=== PATIENT | female | born 2000 | race Caucasian/White ===

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

== ENCOUNTER 2019-01-25 14:51 | Emergency (ER) | payer OTHER ==
[2019-01-25] MEDS ORDERED: DIPH,PERTUS(ACELL)TETVAC-LF 0.5 ML VIAL IM ONE (15:00)
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
[2019-01-25 15:56] LABS: Anisocytosis Slight; Basophils # (A) 0.1 k/uL (0-0.2); Basophils % (A) 1 %; Eosinophils % (A) 0 %; HCT 40.5 % (34.0-46.0); HGB 12.5 gm/dL (11.4-16.0); Lymphocytes # (A) 1.6 k/uL (1.0-4.8); Lymphocytes % (A) 16 %; MCH 22.3 pg (25.0-35.0); MCHC 30.9 g/dL (31.0-37.0); MCV 72.2 fL (80.0-100.0); Microcytosis Moderate; Monocytes # (A) 0.4 k/uL (0-1.0); Monocytes % (A) 4 %; Neutrophils % (A) 78 %; Platelet Count 312 k/uL (150-450); RBC 5.61 m/uL (3.80-5.40); RDW 16.4 % (11.5-15.5); WBC 10.3 k/uL (4.0-11.0)
[2019-01-25 16:05] LABS: ALT 25 U/L (9-52); AST 29 U/L (14-36); African American GFR (CKD) >90 (>60 ml/min/1.73 sqM); Albumin 4.6 g/dL (3.5-5.0); Alcohol <10 mg/dL; Alkaline Phosphatase 145 U/L (38-126); Anion Gap 10 mmol/L; Blood Urea Nitrogen 14 mg/dL (7-17); Calcium 10.1 mg/dL (8.4-10.2); Carbon Dioxide 25 mmol/L (22-30); Chloride 107 mmol/L (98-107); Glucose 88 mg/dL (74-99); Potassium 4.3 mmol/L (3.5-5.1); Sodium 142 mmol/L (137-145); Total Bilirubin 0.3 mg/dL (0.2-1.3); Total Protein 7.8 g/dL (6.3-8.2)
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
[2019-01-25 16:58] LABS: Appearance,Urine Clear (Clear); Bilirubin,Urine Negative (Negative); Blood,Urine Negative (Negative); Color,Urine Light Yellow; Glucose,Urine (UA) Negative (Negative); Ketones,Urine Negative (Negative); Leukocyte Esterase,Urine Negative (Negative); Nitrite,Urine Negative (Negative); Protein,Urine Negative (Negative); Specific Gravity,Urine 1.018 (1.001-1.035); Urobilinogen,Urine <2.0 mg/dL (<2.0)
[2019-01-25 17:07] LABS: Amphetamine Screen,Urine Not Detected (NotDetected); Barbiturate Screen,Urine Not Detected (NotDetected); Benzodiazepines Screen,Urine Not Detected (NotDetected); Cocaine Screen,Urine Not Detected (NotDetected); Methadone Screen, Urine Not Detected (NotDetected); Opiate Screen,Urine Not Detected (NotDetected); Oxycodone Screen, Urine Not Detected (NotDetected); Phencyclidine Screen,Urine Not Detected (NotDetected); Tricyclic Antidepressant,Urine Not Detected (NotDetected); Urn Cannabinoid Scrn Not Detected (NotDetected)
[2019-01-25] MEDS ORDERED: KETOROLAC 60 MG/2 ML VIAL IVP STA (17:19)
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
[2019-01-25 18:27] VITALS: BP 153/90; PULSE 90; RESP 18; TEMP 98.3
== END 2019-01-25 18:32 | disposition home or self-care (01) ==
LOC: EC 14:51
DX: S20.219A Contusion of unspecified front wall of thorax, initial encounter (principal); S80.02XA Contusion of left knee, initial encounter; F17.200 Nicotine dependence, unspecified, uncomplicated; Z23 Encounter for immunization; V43.52XA Car driver injured in collision with other type car in traffic accident, initial encounter; Y93.9 Activity, unspecified; Y92.410 Unspecified street and highway as the place of occurrence of the external cause
CPT/HCPCS: 90471; 96374; 99285; 36415; 93005; 86900; 86901; 80053; 84484; 85025; 86850; 81003; 80306; 80320; 72170; 73564; 72125; 70450; 71260; 74177; 90715; J1885; Q9967

== ENCOUNTER → 2019-12-11 | Outpatient (CLI) | payer BC, OTHER | END | disposition home or self-care (01) | LOC: LABWHC1 14:20 | PROVIDERS: ATTEND Nurse Practitioner Family | DX: Z03.89 Encounter for observation for other suspected diseases and conditions ruled out (principal) | CPT/HCPCS: U0003; C9803 ==

== ENCOUNTER 2020-10-18 19:32 | Inpatient (IN) | payer BC ==
[2020-10-18] MEDS ORDERED: METOCLOPRAMIDE 5 MG/ML 2 ML VIAL IVP STA (20:01)
--- NOTE | 2020-10-18 20:01 | ED ---
General Adult HPI - General Source: patient, EMS Mode of arrival: EMS <Morales Gallo D - Last Filed: 10/18/20 23:28> <TaniyaRico Anabel - Last Filed: 10/19/20 01:44> - General Chief complaint: Chest Pain Stated complaint: Chest Pain Time Seen by Provider: 10/18/20 19:36 - History of Present Illness Initial comments: Dictation was produced using [employer] dictation software. please excuse any grammatical, word or spelling errors. Chief Complaint: 19-year-old female presents with chest pain History of Present Illness: Patient 19-year-old female presents to the emergency department today for chest pain. Patient states it started about 1 hour prior to arrival. She states as a sharp pain located to the left lower anterior chest. This worse with deep inspiration. Patient states the pain radiates to her shoulder. She denies any shortness of breath except when she takes a deep breath. She denies any medical problems. No history of blood clots. No complaints of leg swelling or calf pain. No fevers or recent cough. She does complain of associated nausea The ROS documented in this emergency department record has been reviewed and confirmed by me. Those systems with pertinent positive or negative responses have been documented in the HPI. All other systems are other negative and/or noncontributory. PHYSICAL EXAM: General Impression: Alert and oriented x3, nauseated HEENT: Normocephalic atraumatic, extra-ocular movements intact, pupils equal and reactive to light bilaterally, mucous membranes moist. Cardiovascular: Heart regular rate and rhythm Chest: Able to complete full sentences, no retractions, no tachypnea Abdomen: abdomen soft, non-tender, non-distended, no organomegaly Musculoskeletal: Pulses present and equal in all extremities, no peripheral edema Motor: no focal deficits noted Neurological: CN II-XII grossly intact, no focal motor or sensory deficits noted Skin: Intact with no visualized rashes Psych: Normal affect and mood ED course: 19-year-old febrile presents with atypical chest pain. Vital signs upon arrival within acceptable limits. EKG shows no signs of ischemia or infarction. Laboratory evaluation obtained. Mild leukocytosis of 13.3 likely secondary stre ss. Coag panel is negative. D-dimer is elevated 1.33. Metabolic panel is within acceptable limits. Except for some mild acidosis. Serum alcohol is negative. TSH is normal. Lipase is normal. Chest x-ray is nonacute. CT angios the chest shows no pulmonary emboli. Pulmonary parenchyma is normal. There is however incidental finding of abdominal ascites. Patient has any abdominal trauma. She has no abdominal pain. Patient states that for 6 months after turning 19 she was drinking heavily. She has not drink heavily several weeks. EKG interpretation: Ventricular rate 73, sinus rhythm, NM interval 98, QRS 90, QTc 447. No NM prolongation, no QTC prolongation, no ST or T-wave changes noted. EKG compared to 01/25/2019 showing no changes. Overall, this EKG is unremarkable Patient was told of her abdominal ascites and density in the right lower the liver dosing and scan from 2019. Orthostatic vital signs were attempted. Patient syncopized when going from sitting to standing. Patient had syncopized on multiple occasions while in the emergency department. She is pale in appearance. She continues to say that she has no pain. Patient given him another liter of fluid. The patient's second episode of syncope. She was connected to the monitor. Monitor was reviewed. There were no episodes of ventricular dysrhythmias. Around the time of syncope patient did become bradycardic and hypotensive recently. Per to be vasovagal in nature. Nonetheless given that patient having continued episodes of syncope should be admitted. Case discussed with Dr. Gaitan, who will follow up with CT of the abdomen to get more imaging of this unspecified ascites in the abdomen. (Morales Gallo) - Related Data Home Medications Medication Instructions Recorded Confirmed No Known Home Medications 01/25/19 10/18/20 Allergies Allergy/AdvReac Type Severity Reaction Status Date / Time No Known Allergies Allergy Verified 10/18/20 21:52 Review of Systems ROS Other: All systems not noted in ROS Statement are negative. <Morales Gallo - Last Filed: 10/18/20 23:28> ROS Other: All systems not noted in ROS Statement are negative. <Rico Monahan - Last Filed: 10/19/20 01:44> ROS Statement: Those systems with pertinent positive or pertinent negative responses have been documented in the HPI. Past Medical History Past Medical History: No Reported History History of Any Multi-Drug Resistant Organisms: None Reported Past Surgical History: Section Past Psychological History: ADD/ADHD, Anxiety Smoking Status: Vaper Past Alcohol Use History: None Reported Past Drug Use History: None Reported <Morales Gallo - Last Filed: 10/18/20 23:28> General Exam Limitations: altered mental status General appearance: lethargic, in distress Head exam: Present: atraumatic, normocephalic, normal inspection Eye exam: Present: normal appearance, PERRL, EOMI. Absent: scleral icterus, conjunctival injection, periorbital swelling ENT exam: Present: normal exam, mucous membranes dry Neck exam: Present: normal inspection. Absent: tenderness, meningismus, lymphadenopathy Respiratory exam: Present: normal lung sounds bilaterally. Absent: respiratory distress, wheezes, rales, rhonchi, stridor Cardiovascular Exam: Present: normal rhythm, tachycardia, normal heart sounds. Absent: systolic murmur, diastolic murmur, rubs, gallop, clicks GI/Abdominal exam: Present: soft, normal bowel sounds. Absent: distended, tenderness, guarding, rebound, rigid Extremities exam: Present: normal inspection, full ROM, normal capillary refill. Absent: tenderness, pedal edema, joint swelling, calf tenderness Back exam: Present: normal inspection Neurological exam: Present: alert, oriented X3, CN II-XII intact Psychiatric exam: Present: normal affect, normal mood Skin exam: Present: warm, dry, intact, normal color. Absent: rash <Rico Monahan - Last Filed: 10/19/20 01:44> - General Exam Comments Initial Comments: Patient currently pale diaphoretic tachycardic (Rico Monahan) Course <Rico Monahan - Last Filed: 10/19/20 01:44> Vital Signs 10/18/20 10/18/20 10/18/20 19:38 20:30 20:33 Temperature 98.3 F Pulse Rate 70 65 62 Respiratory 18 18 16 Rate Blood Pressure 130/90 128/50 88/64 O2 Sat by Pulse 99 100 100 Oximetry 10/18/20 10/18/20 10/18/20 21:00 22:00 22:30 Temperature Pulse Rate 75 75 86 Respiratory 18 16 18 Rate Blood Pressure 109/76 114/60 116/65 O2 Sat by Pulse 100 100 100 Oximetry 0810/18/20 10/19/20 22:45 23:00 00:50 Temperature 98.3 F Pulse Rate 76 54 L 120 H Respiratory 16 18 Rate Blood Pressure 79/40 105/61 118/67 O2 Sat by Pulse 100 97 Oximetry 10/19/20 10/19/20 10/19/20 00:55 00:58 01:06 Temperature 98.3 F 98.4 F Pulse Rate 120 H 123 H 102 H Respiratory 18 18 16 Rate Blood Pressure 124/70 134/83 126/63 O2 Sat by Pulse 100 100 100 Oximetry 10/19/20 10/19/20 10/19/20 01:07 01:13 01:14 Temperature 98.4 F 98.3 F 98.4 F Pulse Rate 102 H 90 101 H Respiratory 15 16 16 Rate Blood Pressure 124/64 128/47 126/55 O2 Sat by Pulse 100 100 100 Oximetry 10/19/20 10/19/20 10/19/20 01:15 01:20 01:21 Temperature 98.4 F 99 F 99 F Pulse Rate 90 93 98 Respiratory 16 16 16 Rate Blood Pressure 126/63 133/62 139/62 O2 Sat by Pulse 100 100 100 Oximetry 10/19/20 01:30 Temperature 98.2 F Pulse Rate 81 Respiratory 16 Rate Blood Pressure 133/70 O2 Sat by Pulse 100 Oximetry - Reevaluation(s) Reevaluation #1: 10/19/20 01:21 Medical record is reviewed (Rico Monahan) Reevaluation #2: 10/19/20 01:21 Patient reevaluated at bedside with recurrent syncope versus near syncopal event, significantly tachycardic currently pale and diaphoretic likely due to dramatic blood loss (Rico Monahan) Reevaluation #3: 10/19/20 01:22 Spoke with family both mother and significant other at length as well as patient regarding findings, questions answered (Rico Monahan) Reevaluation #4: 10/19/20 01:42 patient significantly stabilized with Mass Transfusion and will be taken to the OR (Rico Monahan) - Consultations Consultation #1: [address] Bee regarding computed tomography scan findings Spoke with surgery on-call Dr. Bermeo regarding findings here in the ER, she will come see this patient (Rico Monahan) Medical Decision Making - Lab Data Result diagrams: 10/18/20 20:05 10/18/20 20:05 <Morales Gallo - Last Filed: 10/18/20 23:28> - Lab Data Result diagrams: 10/19/20 00:25 10/18/20 20:05 - Radiology Data Radiology results: report reviewed (CT chest is negative for PE, CT abdomen and pelvis does show what appears to be gastric or splenic tumor with active bleeding), image reviewed <Rico Monahan - Last Filed: 10/19/20 01:44> - Medical Decision Making 19-year-old female who came in with recurrent syncope and abdominal pain, left upper shoulder pain today. Patient is found to have actively bleeding and recurrently bleeding tumor in the abdomen. She has had multiple syncopal events here in the emergency department is given transfusion due to symptomatic bleeding. Will be admitted to the operating room (Rico Monahan) - Lab Data Lab Results 10/18/20 10/18/20 10/18/20 Range/Units 20:05 20:05 20:05 WBC 13.3 H (3.8-10.6) k/uL RBC 4.29 (3.80-5.40) m/uL Hgb 11.6 (11.4-16.0) gm/dL Hct 34.5 (34.0-46.0) % MCV 80.4 (80.0-100.0) fL MCH 27.0 (25.0-35.0) pg MCHC 33.5 (31.0-37.0) g/dL RDW 14.5 (11.5-15.5) % Plt Count 345 (150-450) k/uL MPV 8.9 Neutrophils % 79 % Lymphocytes % 16 % Monocytes % 3 % Eosinophils % 0 % Basophils % 0 % Neutrophils # 10.5 H (1.3-7.7) k/uL Lymphocytes # 2.2 (1.0-4.8) k/uL Monocytes # 0.4 (0-1.0) k/uL Eosinophils # 0.0 (0-0.7) k/uL Basophils # 0.0 (0-0.2) k/uL PT 11.3 (9.0-12.0) sec INR 1.1 (<1.2) APTT 20.6 L (22.0-30.0) sec D-Dimer 1.33 H (<0.60) mg/L FEU Sodium 135 L (137-145) mmol/L Potassium 4.2 (3.5-5.1) mmol/L Chloride 106 (98-107) mmol/L Carbon Dioxide 18 L (22-30) mmol/L Anion Gap 11 mmol/L BUN 11 (7-17) mg/dL Creatinine 0.63 (0.52-1.04) mg/dL Est GFR (CKD-EPI)AfAm >90 (>60 ml/min/1.73 sqM) Est GFR (CKD-EPI)NonAf >90 (>60 ml/min/1.73 sqM) Glucose 122 H (74-99) mg/dL POC Glucose (mg/dL) (75-99) mg/dL POC Glu [employer] Batch Mixer ID Calcium 9.3 (8.4-10.2) mg/dL Magnesium 2.0 (1.6-2.3) mg/dL Total Bilirubin 0.5 (0.2-1.3) mg/dL AST 109 H (14-36) U/L ALT 55 H (4-34) U/L Alkaline Phosphatase 143 H (38-126) U/L Troponin I (0.000-0.034) ng/mL Total Protein 6.4 (6.3-8.2) g/dL Albumin 4.0 (3.5-5.0) g/dL Lipase 44 (23-300) U/L TSH (0.465-4.680) mIU/L Serum Alcohol mg/dL 10/18/20 10/18/20 10/18/20 Range/Units 20:05 20:40 21:08 WBC (3.8-10.6) k/uL RBC (3.80-5.40) m/uL Hgb (11.4-16.0) gm/dL Hct (34.0-46.0) % MCV (80.0-100.0) fL MCH (25.0-35.0) pg MCHC (31.0-37.0) g/dL RDW (11.5-15.5) % Plt Count (150-450) k/uL MPV Neutrophils % % Lymphocytes % % Monocytes % % Eosinophils % % Basophils % % Neutrophils # (1.3-7.7) k/uL Lymphocytes # (1.0-4.8) k/uL Monocytes # (0-1.0) k/uL Eosinophils # (0-0.7) k/uL Basophils # (0-0.2) k/uL PT (9.0-12.0) sec INR (<1.2) APTT (22.0-30.0) sec D-Dimer (<0.60) mg/L FEU Sodium (137-145) mmol/L Potassium (3.5-5.1) mmol/L Chloride (98-107) mmol/L Carbon Dioxide (22-30) mmol/L Anion Gap mmol/L BUN (7-17) mg/dL Creatinine (0.52-1.04) mg/dL Est GFR (CKD-EPI)AfAm (>60 ml/min/1.73 sqM) Est GFR (CKD-EPI)NonAf (>60 ml/min/1.73 sqM) Glucose (74-99) mg/dL POC Glucose (mg/dL) 149 H (75-99) mg/dL POC Glu [employer] Mixer ID Sabi Alcazar Calcium (8.4-10.2) mg/dL Magnesium (1.6-2.3) mg/dL Total Bilirubin (0.2-1.3) mg/dL AST (14-36) U/L ALT (4-34) U/L Alkaline Phosphatase (38-126) U/L Troponin I <0.012 (0.000-0.034) ng/mL Total Protein (6.3-8.2) g/dL Albumin (3.5-5.0) g/dL Lipase 41 (23-300) U/L TSH 3.500 (0.465-4.680) mIU/L Serum Alcohol <10 mg/dL 10/18/20 Range/Units 23:09 WBC (3.8-10.6) k/uL RBC (3.80-5.40) m/uL Hgb (11.4-16.0) gm/dL Hct (34.0-46.0) % MCV (80.0-100.0) fL MCH (25.0-35.0) pg MCHC (31.0-37.0) g/dL RDW (11.5-15.5) % Plt Count (150-450) k/uL MPV Neutrophils % % Lymphocytes % % Monocytes % % Eosinophils % % Basophils % % Neutrophils # (1.3-7.7) k/uL Lymphocytes # (1.0-4.8) k/uL Monocytes # (0-1.0) k/uL Eosinophils # (0-0.7) k/uL Basophils # (0-0.2) k/uL PT (9.0-12.0) sec INR (<1.2) APTT (22.0-30.0) sec D-Dimer (<0.60) mg/L FEU Sodium (137-145) mmol/L Potassium (3.5-5.1) mmol/L Chloride (98-107) mmol/L Carbon Dioxide (22-30) mmol/L Anion Gap mmol/L BUN (7-17) mg/dL Creatinine (0.52-1.04) mg/dL Est GFR (CKD-EPI)AfAm (>60 ml/min/1.73 sqM) Est GFR (CKD-EPI)NonAf (>60 ml/min/1.73 sqM) Glucose (74-99) mg/dL POC Glucose (mg/dL) 99 (75-99) mg/dL POC Glu [employer] Batch Mixer ID Herbert Vences Calcium (8.4-10.2) mg/dL Magnesium (1.6-2.3) mg/dL Total Bilirubin (0.2-1.3) mg/dL AST (14-36) U/L ALT (4-34) U/L Alkaline Phosphatase (38-126) U/L Troponin I (0.000-0.034) ng/mL Total Protein (6.3-8.2) g/dL Albumin (3.5-5.0) g/dL Lipase (23-300) U/L TSH (0.465-4.680) mIU/L Serum Alcohol mg/dL Critical Care Time Critical Care Time: Yes Total Critical Care Time: 65 <Rico Monahan - Last Filed: 10/19/20 01:44> Disposition <Morales Gallo - Last Filed: 10/18/20 23:28> <Rico Monahan - Last Filed: 10/19/20 01:44> Clinical Impression: Atypical chest pain, Syncope, Anemia, Gastric tumor, Intraperitoneal hemorrhage Disposition: ADMITTED IP TO THIS HOSP Condition: Serious
[2020-10-18 20:16] LABS: Basophils % (A) 0 %; Eosinophils % (A) 0 %; HCT 34.5 % (34.0-46.0); HGB 11.6 gm/dL (11.4-16.0); Lymphocytes # (A) 2.2 k/uL (1.0-4.8); Lymphocytes % (A) 16 %; MCHC 33.5 g/dL (31.0-37.0); MCV 80.4 fL (80.0-100.0); Mean Platelet Volume 8.9; Monocytes # (A) 0.4 k/uL (0-1.0); Monocytes % (A) 3 %; Neutrophils # (A) 10.5 k/uL (1.3-7.7); Neutrophils % (A) 79 %; Platelet Count 345 k/uL (150-450); RBC 4.29 m/uL (3.80-5.40); RDW 14.5 % (11.5-15.5); WBC 13.3 k/uL (3.8-10.6)
[2020-10-18 20:31] LABS: ALT 55 U/L (4-34); AST 109 U/L (14-36); African American GFR (CKD) >90 (>60 ml/min/1.73 sqM); Alkaline Phosphatase 143 U/L (38-126); Anion Gap 11 mmol/L; Blood Urea Nitrogen 11 mg/dL (7-17); Calcium 9.3 mg/dL (8.4-10.2); Carbon Dioxide 18 mmol/L (22-30); Chloride 106 mmol/L (98-107); Glucose 122 mg/dL (74-99); Lipase 44 U/L (23-300); Non-African American GFR(CKD) >90 (>60 ml/min/1.73 sqM); Potassium 4.2 mmol/L (3.5-5.1); Sodium 135 mmol/L (137-145); Total Bilirubin 0.5 mg/dL (0.2-1.3); Total Protein 6.4 g/dL (6.3-8.2)
[2020-10-18 20:35] LABS: INR 1.1 (<1.2); Prothrombin Time 11.3 sec (9.0-12.0)
[2020-10-18 20:42] LABS: Glucose,Whole Blood 149 mg/dL (75-99)
[2020-10-18] MEDS ORDERED: SODIUM CHLORIDE 0.9% 1,000 ML IV STA ×2 (20:49→23:14)
--- NOTE | 2020-10-18 21:08 | XR ---
EXAMINATION TYPE: XR chest 1V portable DATE OF EXAM: 10/18/2020 COMPARISON: None HISTORY: Pleurisy. Chest pain TECHNIQUE: Single view FINDINGS: Heart and mediastinum are normal. Lungs are clear. Diaphragm is normal. Bony thorax appears normal. There are chest leads. IMPRESSION: Normal chest.
[2020-10-18 21:10] LABS: Partial Thromboplastin Time 20.6 sec (22.0-30.0)
[2020-10-18 21:38] LABS: Alcohol <10 mg/dL; Lipase 41 U/L (23-300)
--- NOTE | 2020-10-18 22:01 | CT ---
EXAMINATION TYPE: CT angio chest DATE OF EXAM: 10/18/2020 COMPARISON: None HISTORY: Left sided pain with shortness of breath. CT DLP: 343.9 mGycm Automated exposure control for dose reduction was used. CONTRAST: Performed with IV Contrast, patient injected with 47 mL of Isovue 370. There are 3-D post processed images. The lungs are clear of infiltrate. There is no pleural effusion. There is no evidence of a pulmonary mass. There is no mediastinal adenopathy. There are no hilar masses. Thoracic aorta is intact. There is no aneurysm or dissection. There is normal contrast opacification of the pulmonary arteries. There are no filling defects. There is some free fluid around the liver and spleen. There is 2.5 cm area of increased density in th e superior right lobe of the liver that could be a vascular malformation and not changed compared to CT scan of 01/25/2019. The thoracic spine is intact. There is no compression fracture. Sternum is intact. The ribs appear in tact. IMPRESSION: No evidence of pulmonary embolism. Normal exam. There is low-density free fluid in the abdomen consistent with abdominal ascites.
[2020-10-18 23:12] LABS: Glucose,Whole Blood 99 mg/dL (75-99)
[2020-10-18] MEDS ORDERED: PIPERACILLIN-TAZOBACTAM 3.375 GM in SODIUM CHLORIDE 0.9% 100 ML IVPB ONE (23:15)
[2020-10-18] MEDS ORDERED: ACETAMINOPHEN TAB 325 MG TAB PO PRN (23:24)
[2020-10-18] MEDS ORDERED: ONDANSETRON 4 MG/2 ML VIAL IVP PRN (23:24)
[2020-10-18] MEDS ORDERED: NALOXONE 0.4 MG/ML 1 ML VIAL IV PRN (23:24)
--- NOTE | 2020-10-19 00:20 | CT ---
EXAMINATION TYPE: CT abdomen pelvis w con DATE OF EXAM: 10/18/2020 COMPARISON: 01/25/2019 HISTORY: sudden left sided chest pain that radiates to neck CT DLP: 956.80 mGycm Automated exposure control for dose reduction was used. CONTRAST: Performed with IV Contrast, patient injected with 80 mL of Isovue 300. Lung bases are clear. There is no pleural effusion. Heart size is normal. There is moderate amount of intermediate density free fluid around the liver and spleen. There is ant erior displacement of the stomach. The pancreas appears normal. There is a complex mass between negat yasmany stomach and the spleen this could be a very large splenic hematoma. This measures 12 x 7 cm. There is no adrenal mass. Kidneys show satisfactory contrast opacification. There is no hydronephrosi s. There is no retroperitoneal adenopathy. Bladder distends smoothly with contrast. Uterus is antever michel. There is no inguinal hernia. There is no evidence of a pelvic mass. There is large amount of low -density fluid in the pelvis. Fluid in the abdomen has density of 36 and this could be hemorrhage. Lumbar vertebra have normal spacing and alignment. Posterior elements are intact. Bony pelvis is inta ct. Hip joints are intact. There is no evidence of free air. I see no evidence of bowel obstruction. IMPRESSION: Large amount of intermediate density fluid in the abdomen consistent with acute intraperitoneal hemor rhage. There is a complex mass in the left upper quadrant between the stomach and the spleen. This co uld be the source of the hemorrhage. Origin of this mass is not clear. This appears to be also presen t on the previous CT scan of 01/25/2019. I would consider possibilities of a gastric leiomyoma with h emorrhadiony.
[2020-10-19 00:22] LABS: Acetaminophen <10.0 ug/mL; Phosphorus 3.4 mg/dL (2.5-4.5); Salicylate 1.3 mg/dL
[2020-10-19 00:27] LABS: Lactic Acid, Venous 2.4 mmol/L (0.7-2.0)
[2020-10-19 01:19] LABS: Basophils % (A) 0 %; Eosinophils % (A) 0 %; HCT 27.5 % (34.0-46.0); Lymphocytes % (A) 7 %; MCHC 32.1 g/dL (31.0-37.0); MCV 81.2 fL (80.0-100.0); Mean Platelet Volume 8.9; Monocytes # (A) 0.4 k/uL (0-1.0); Monocytes % (A) 3 %; Neutrophils % (A) 90 %; Platelet Count 306 k/uL (150-450); RBC 3.38 m/uL (3.80-5.40); RDW 14.6 % (11.5-15.5); WBC 15.5 k/uL (3.8-10.6)
[2020-10-19 01:20] LABS: HGB 8.8 gm/dL (11.4-16.0)
[2020-10-19] MEDS ORDERED: fentaNYL (PF) 50 MCG/ML 2 ML AMP IV STA (01:22)
[2020-10-19] MEDS: SODIUM CHLORIDE 0.9% 1,000 ML IV SCH ×3 (01:50→12:42)
[2020-10-19] MEDS ORDERED: HYDROmorphone 1 MG/ML 1 ML SYRINGE IVP PRN (01:53)
[2020-10-19] MEDS ORDERED: HYDROmorphone 1 MG/ML 1 ML SYRINGE IVP STA (01:53)
--- NOTE | 2020-10-19 02:20 | P.GSCN ---
History of Present Illness Consult date: 10/19/20 History of present illness: CHIEF COMPLAINT: Abdominal pain with syncope HISTORY OF PRESENT ILLNESS: The patient is a previously healthy 19 year old female who presented to the emergency room 6-7 hours ago with acute chest pain including dizziness and fatigue. She denies any prior episodes. During her presentation, initial hemoglobin was normal at 11.6 and normotensive. Troponin was negative. Her EKG demonstrated sinus rhythm otherwise normal. Additional workup including CT chest Demonstrated no pulmonary embolism with partial ascites. During her assessment, per ER provider report, patient became pale and had syncope and heart rate elevated to 120s. Blood pressure systolic drop to 70s to 80s. Additional diagnostic studies demonstrated intra-abdominal hemorrhage. Massive transfusion protocol was started. General surgery is consulted for acute management. PAST MEDICAL HISTORY: See list and reviewed PAST SURGICAL HISTORY: See list and reviewed MEDICATIONS: See list and reviewed ALLERGIES: See list and reviewed SOCIAL HISTORY: See list and reviewed FAMILY HISTORY: See list and reviewed REVIEW OF ORGAN SYSTEMS: CONSTITUTIONAL: No fevers or chills. No recent weight loss. EYES: Denies any trouble with vision. No glasses. HEENT: No difficulties with hearing. No nosebleeds. No difficulty swallowing. RESPIRATORY: Denies pneumonia. Denies any troubles with breathing or dyspnea on exertion. CARDIOVASCULAR: Denies any chest pain, palpitations, or recent heart attacks. GASTROINTESTINAL: Denies fatty food intolerance. Denies change in bowel habits and gas bloat. GENITOURINARY: Denies any blood in urine or increased urinary frequency. NEUROLOGICAL: Denies any numbness or tingling along the distal extremities. No seizure disorders or headaches. MUSCULOSKELETAL: Denies any back pain, stiffness or joint arthritis. SKIN: No current skin cancer. No rash. PSYCHIATRIC: Denies current depression or suicidal thoughts. Has ADD with ADHD. Has anxiety. ENDOCRINE: Denies current thyroid disorders. Denies any blood sugar glucose intolerance. HEME/LYMPHATIC: Denies any lumps and bumps around the neck. No recent deep v enous thrombosis. ALLERGY/IMMUNOLOGY: No immunoglobulin therapy. No immune deficiencies. BREAST: Denies current breast lumps, pain or nipple discharge. PHYSICAL EXAM: VITALS: Reviewed CONSTITUTIONAL: Well developed and in no acute distress. EYES: Conjuctivae without sclera icterus. Extraocular movements grossly intact. HEAD, EARS, NOSE, THROAT: Moist buccal mucosa. Head is atraumatic, normo cephalic. Hears conversational speech. No nasal drainage. NECK: Supple. No JV distention. No gross thyroidomegaly. RESPIRATORY: Non-labored respirations and equal bilateral excursions. No gross wheezes. CARDIOVASCULAR: Regular rate and rhythm. ABDOMEN: Tender bilateral upper abdomen. Has peritonitis. LYMPH: No gross neck lymphadenopathy. MUSCULOSKELETAL: Nail and fingers with good capillary refill. SKIN: Warm and well perfused with good skin turgor. NEUROLOGIC: Cranial nerves II through XII grossly intact. Sensation upper and extremities intact. No focal or lateralizing signs. PSYCH: Appropriate affect. Alert and oriented to person, place and time. Displays appropriate insight. CLINCAL LABS: Reviewed. Initial hemoglobin of 11.6-8.8. IMAGING: Independently reviewed CT of the abdomen and pelvis with fluid along the liver and spleen as well as a large posterior gastric tumor identified. This is my independent interpretation. RADIOLOGY: Report reviewed CT of the abdomen and pelvis with 12 x 7 cm mass between the stomach and spleen including large splenic hematoma. Acute intra- abdominal hemorrhage identified. CTA of the chest report demonstrates no pulmonary embolism. Questionable ascites along the spleen and liver identified. RECORDS: previous old records reviewed CT of the abdomen and pelvis from 2019 without large tumor present. ASSESSMENT: 1. Acute blood loss anemia with hemorrhagic hypotension responsive to blood 2. Abnormal CT with gastric tumor 3. Acute intra-abdominal hemorrhage PLAN: 1. Patient has been started on massive transfusion protocol with 4 units packed red blood cells transfused. 2. Emergency exploratory laparotomy described to her including family at bedside with control of intra-abdominal hemorrhage and splenectomy and gastrectomy described 3. Postoperative recovery and intensive care unit also reviewed 4. Patient in critical condition CRITICAL CARE TIME: 33 minutes including assessment, management, coordination of care with providers for emergency laparotomy Past Medical History Past Medical History: No Reported History History of Any Multi-Drug Resistant Organisms: None Reported Past Surgical History: Section Past Psychological History: ADD/ADHD, Anxiety Smoking Status: Vaper Past Alcohol Use History: None Reported Past Drug Use History: None Reported Medications and Allergies Home Medications Medication Instructions Recorded Confirmed Type No Known Home Medications 01/25/19 10/18/20 History Allergies Allergy/AdvReac Type Severity Reaction Status Date / Time No Known Allergies Allergy Verified 10/18/20 21:52 Surgical - Exam Vital Signs Temp Pulse Resp BP Pulse Ox 98.3 F 70 18 130/90 99 10/18/20 19:38 10/18/20 19:38 10/18/20 19:38 10/18/20 19:38 10/18/20 19:38 Results - Labs 10/19/20 00:25 10/18/20 20:05 Abnormal Lab Results - Last 24 Hours (Table) 10/18/20 10/18/20 10/18/20 Range/Units 20:05 20:05 20:05 WBC 13.3 H (3.8-10.6) k/uL RBC (3.80-5.40) m/uL Hgb (11.4-16.0) gm/dL Hct (34.0-46.0) % Neutrophils # 10.5 H (1.3-7.7) k/uL APTT 20.6 L (22.0-30.0) sec D-Dimer 1.33 H (<0.60) mg/L FEU Sodium 135 L (137-145) mmol/L Carbon Dioxide 18 L (22-30) mmol/L Glucose 122 H (74-99) mg/dL POC Glucose (mg/dL) (75-99) mg/dL Plasma Lactic Acid Maikol (0.7-2.0) mmol/L AST 109 H (14-36) U/L ALT 55 H (4-34) U/L Alkaline Phosphatase 143 H (38-126) U/L 10/18/20 10/19/20 10/19/20 Range/Units 20:40 00:02 00:25 WBC 15.5 H (3.8-10.6) k/uL RBC 3.38 L (3.80-5.40) m/uL Hgb 8.8 L D (11.4-16.0) gm/dL Hct 27.5 L (34.0-46.0) % Neutrophils # 14.0 H (1.3-7.7) k/uL APTT (22.0-30.0) sec D-Dimer (<0.60) mg/L FEU Sodium (137-145) mmol/L Carbon Dioxide (22-30) mmol/L Glucose (74-99) mg/dL POC Glucose (mg/dL) 149 H (75-99) mg/dL Plasma Lactic Acid Maikol 2.4 H* (0.7-2.0) mmol/L AST (14-36) U/L ALT (4-34) U/L Alkaline Phosphatase (38-126) U/L Diabetes panel 10/18/20 Range/Units 20:05 Sodium 135 L (137-145) mmol/L Potassium 4.2 (3.5-5.1) mmol/L Chloride 106 (98-107) mmol/L Carbon Dioxide 18 L (22-30) mmol/L BUN 11 (7-17) mg/dL Creatinine 0.63 (0.52-1.04) mg/dL Glucose 122 H (74-99) mg/dL Calcium 9.3 (8.4-10.2) mg/dL AST 109 H (14-36) U/L ALT 55 H (4-34) U/L Alkaline Phosphatase 143 H (38-126) U/L Total Protein 6.4 (6.3-8.2) g/dL Albumin 4.0 (3.5-5.0) g/dL Thyroid panel 10/18/20 10/19/20 Range/Units 21:08 00:02 TSH 3.500 2.050 (0.465-4.680) mIU/L Calcium panel 10/18/20 10/19/20 Range/Units 20:05 00:02 Calcium 9.3 (8.4-10.2) mg/dL Phosphorus 3.4 (2.5-4.5) mg/dL Albumin 4.0 (3.5-5.0) g/dL Pituitary panel 10/18/20 10/18/20 10/19/20 Range/Units 20:05 21:08 00:02 Sodium 135 L (137-145) mmol/L Potassium 4.2 (3.5-5.1) mmol/L Chloride 106 (98-107) mmol/L Carbon Dioxide 18 L (22-30) mmol/L BUN 11 (7-17) mg/dL Creatinine 0.63 (0.52-1.04) mg/dL Glucose 122 H (74-99) mg/dL Calcium 9.3 (8.4-10.2) mg/dL TSH 3.500 2.050 (0.465-4.680) mIU/L Adrenal panel 10/18/20 Range/Units 20:05 Sodium 135 L (137-145) mmol/L Potassium 4.2 (3.5-5.1) mmol/L Chloride 106 (98-107) mmol/L Carbon Dioxide 18 L (22-30) mmol/L BUN 11 (7-17) mg/dL Creatinine 0.63 (0.52-1.04) mg/dL Glucose 122 H (74-99) mg/dL Calcium 9.3 (8.4-10.2) mg/dL Total Bilirubin 0.5 (0.2-1.3) mg/dL AST 109 H (14-36) U/L ALT 55 H (4-34) U/L Alkaline Phosphatase 143 H (38-126) U/L Total Protein 6.4 (6.3-8.2) g/dL Albumin 4.0 (3.5-5.0) g/dL Assessment and Plan (1) Acute blood loss anemia (ABLA) Current Visit: Yes Status: Acute Code(s): D62 - ACUTE POSTHEMORRHAGIC ANEMIA SNOMED Code(s): 335939583 (2) Atypical chest pain Current Visit: Yes Status: Acute Code(s): R07.89 - OTHER CHEST PAIN SNOMED Code(s): 300634503 (3) Syncope Current Visit: Yes Status: Acute Code(s): R55 - SYNCOPE AND COLLAPSE SNOMED Code(s): 730558303 (4) Gastric tumor Current Visit: Yes Status: Acute Code(s): D49.0 - NEOPLASM OF UNSPECIFIED BEHAVIOR OF DIGESTIVE SYSTEM SNOMED Code(s): 634669289 (5) Intraperitoneal hemorrhage Current Visit: Yes Status: Acute Code(s): K66.1 - HEMOPERITONEUM SNOMED Code(s): 097248392
[2020-10-19] MEDS ORDERED: ETOMIDATE 2 MG/ML 10 ML VIAL ONE (02:33)
[2020-10-19] MEDS ORDERED: fentaNYL (PF) 50 MCG/ML 2 ML AMP ONE (02:33)
[2020-10-19] MEDS ORDERED: LIDOCAINE 1% INJ 10MG/ML (20 ML MDV) ONE (02:33)
[2020-10-19] MEDS ORDERED: ROCURONIUM 10 MG/ML (5 ML VIAL) IV ONE (02:33)
[2020-10-19] MEDS ORDERED: HYDROmorphone (PF) 1 MG/ML ONE (02:33)
[2020-10-19] MEDS ORDERED: ONDANSETRON 4 MG/2 ML VIAL ONE (02:33)
[2020-10-19] MEDS ORDERED: ceFAZolin 1,000 MG VIAL ONE (02:33)
[2020-10-19] MEDS ORDERED: MIDAZOLAM 2 MG/2 ML VIAL ONE (02:33)
[2020-10-19] MEDS ORDERED: SODIUM CHLORIDE 0.9% 1,000 ML IV ONE ×5 (02:33→04:30)
[2020-10-19] MEDS ORDERED: SODIUM CHLORIDE 0.9% 100 ML BAG ONE (02:33)
[2020-10-19] MEDS ORDERED: SUCCINYLCHOLINE CHLORIDE 100 MG/5 ML SYR IV ONE (02:33)
[2020-10-19] MEDS ORDERED: LACTATED RINGERS 1,000 ML IV ONE (03:10)
--- NOTE | 2020-10-19 03:22 | P.ANPRN ---
Procedure Note - Anesthesia - Invasive Line Right Arterial Line Time Out Performed: Yes (143) Date of Procedure: 10/19/20 Time of Procedure: 14:38 Location of Patient: OR Preparation: Sterile Prep, Sterile Dressing Arterial Line Location: Radial Ultrasound Used: Yes Purpose - Visualization and Identification of Vasculature: Yes Needle Guage: 20g Image Stored and Saved: Yes Narrative: Central line placement per sterile protocol utilized. 20g right radial arterial line started in two attempts. Sterile protocol. Flushed and dressed. Right Central Line Time Out Performed: Yes (143) Date of Procedure: 10/19/20 Time of Procedure: 14:49 Location of Patient: OR Preparation: Sterile Prep, Sterile Dressing Arterial Line Location: Radial Ultrasound Used: Yes Purpose - Visualization and Identification of Vasculature: Yes Needle Guage: 18g angio Image Stored and Saved: Yes Narrative: Central line placement per sterile protocol utilized. +local +angio +cvp +jwire +uneventful dilation and introduction right IJ TLC. Lumens bled and flushed. Non pulsitle. Ultrasound utilized. Picture on chart
[2020-10-19] MEDS ORDERED: SODIUM CHLORIDE 0.9% 100 ML IV ONE (04:30)
[2020-10-19 05:35] LABS: Glucose,Whole Blood 97 mg/dL (75-99)
[2020-10-19] MEDS ORDERED: fentaNYL (PF) 50 MCG/ML 2 ML AMP IVP PRN (06:00)
[2020-10-19 06:01] LABS: Basophils % (A) 0 %; Eosinophils % (A) 0 %; HCT 30.4 % (34.0-46.0); HGB 10.4 gm/dL (11.4-16.0); Lymphocytes # (A) 1.2 k/uL (1.0-4.8); Lymphocytes % (A) 12 %; MCH 29.2 pg (25.0-35.0); MCHC 34.1 g/dL (31.0-37.0); MCV 85.7 fL (80.0-100.0); Mean Platelet Volume 9.2; Monocytes # (A) 0.6 k/uL (0-1.0); Monocytes % (A) 6 %; Neutrophils # (A) 8.1 k/uL (1.3-7.7); Neutrophils % (A) 81 %; Platelet Count 158 k/uL (150-450); RBC 3.55 m/uL (3.80-5.40); RDW 14.5 % (11.5-15.5); WBC 10.1 k/uL (3.8-10.6)
--- NOTE | 2020-10-19 06:02 | P.OP ---
Date of Procedure: 10/19/20 Description of Procedure: SURGEON: JACK SPENCE MD EDUCATION CONSULTANT: NONE. PREOPERATIVE DIAGNOSIS: 1. Acute blood loss anemia due to intra-abdominal hemorrhage 2. Abnormal computed tomography scan for intra-abdominal acute hemorrhagic tumor 3. ADD with ADHD 4. Massive blood transfusion protocol POSTOPERATIVE DIAGNOSIS: 1. Acute blood loss anemia due to intra-abdominal hemorrhage 2. Abnormal computed tomography scan for intra-abdominal acute hemorrhagic tumor 3. ADD with ADHD 4. Massive blood transfusion protocol 5. Acute hemorrhagic left liver lobe tumor over 10 cm 6. Hemoperitoneum from acute hemorrhagic liver tumor OPERATION: 1. Open trauma exploratory laparotomy with control of hemorrhage, liver tumor 2. Evacuation of hemoperitoneum, 1500 mL 3. Placement of left upper quadrant drain, round #19 Bobby-Bradford at anterior left lobe of liver 4. Placement of left lower quadrant drain, round upper 19 Bobby-Bradford in pelvis 5. Application of incisional wound VAC system, universal PREVENA 6. Peritoneal lavage with abdominal washout 1000 mL normal saline ANESTHESIA: General ESTIMATED BLOOD LOSS: 50 cc. SPECIMENS REMOVED: None CONDITION: Stable. DISPOSITION: To the ICU CONDITION: Guarded OPERATIVE FINDINGS: 1. Intra-abdominal clots and acute bleeding throughout the abdomen and pelvis drained over 1500 mL 2. Large left lateral and left medial lobe inferior wall tumor over 10 cm as cause of bleeding 3. Involvement of liver tumor segment 2, 3, 4A, 4B along posterior inferior surface 4. Spleen parenchyma unremarkable for acute bleeding INDICATIONS: The patient is a 19-year-old female who presented acutely to the emergency room after complaining of chest pain including upper abdominal pain. Family gives additional history that the patient has not been feeling well for several months. Initial presentation to the emergency room demonstrated normotensive and hemoglobin 11.6. Patient became hypotensive systolic 70s to 80s with CT of the abdomen and pelvis demonstrating acute intra-abdominal hemorrhagic bleed including tumor between the stomach and spleen, possible gastric tumor per radiology report. Massive transfusion protocol was started with 4 units of blood as hemoglobin precipitously dropped from 11.6-8.8. Emergent surgical intervention with exploratory laparotomy was described. Postsurgical recovery and intensive care unit was reviewed. All questions were addressed and answered with the patient and family. DESCRIPTION: From the emergency room, the patient was transferred to the operating room. After general induction, a Rico catheter was placed. The abdomen was prepped and draped in standard sterile fashion. Multiple hemodynamic lines were placed by anesthesia team. Prior to incision, a timeout protocol was confirmed with surgical team regarding patient's name including procedures to be performed. Preoperative medications were confirmed. Heart rate was within normal limits including blood pressure. A #10 blade was used to enter along the epigastrium and extended down to the pubis. Carefully the abdomen was entered using electro- Bovie cautery. Immediately dark venous blood and clots were evacuated from the abdomen. The 4 quadrants were packed using laparotomy pads. Clots were removed from the right lobe of the liver. Fresh bleeding was confirmed along the left upper quadrant. The stomach was palpated and within normal limits. No gross lymphadenopathy or gastric lymphadenopathy was found. The anterior surface of the liver was unremarkable. The spleen parenchyma was intact. Over 1500 mL of blood was evacuated from the abdomen. The abdomen was irrigated with normal saline where careful attention to the left lobe of the liver demonstrated a palpable large tumor extending anterior to posterior over 10 cm as a active bleeding source. Fibular hemostatic agent was used along the left lobe of the liver to control bleeding. Large serosal vasculature was found along the tumor. The tumor was soft to touch. The segments of the liver including segment 2, 3, 4A, 4B was involved along the posterior inferior portion of the tumor. With this finding and limitations of hepatic resection at our center, control of bleeding was proposed with referral to hepatobiliary center. After complete irrigation of the abdomen, the pelvis was dry. The round #19 Bobby-Bradford drain was placed along the pelvis and exited through the left lower abdomen. A drain stitch using 2-0 nylon was placed. Inspection of the liver tumor demonstrated no brisk bleeding after fibrillar and hemostatic agents were placed. The spleen was undisturbed. A round #19 Bobby-Bradford drain was placed along the anterior inferior surface of the left lobe of the liver and exited below the left lateral abdominal wall. A drain stitch 2-0 nylon was placed. All drains are placed to bulb suction. No further active brisk bleeding was identified prior to closure. Attention was brought back to the midline where the subcutaneous tissue and abdomen was irrigated until the aspirant was clear. The abdomen was closed using double stranded 0 PDS. The skin was cleansed. Stainless skin heidi were placed. A universal incisional wound VAC system PREVENA was cut to size and placed on vacuum seal. Optifoam dressing was placed along BRADEN sites. At the end of the procedure, needle, sponge, and instrument count had been verified correct by the hand frame surgical elastic knitter. The patient was sent to the postanesthesia care unit in stable but guarded condition. Intraoperative findings were described to the patient's family including need for transfer to hepatobiliary center specialized surgical care with finding of large hepatic tumor which may require embolization versus hepatic resection.
[2020-10-19 06:04] LABS: ABG Base Excess -8.5 mmol/L; ABG HCO3 18 mmol/L (21-25); ABG PCO2 38 mmHg (35-45); ABG PH 7.29 (7.35-7.45); ABG PO2 >400 mmHg (83-108); ABG TCO2 19 mmol/L (19-24); Allen Test Performed? Yes
[2020-10-19 06:12] LABS: ALT 124 U/L (4-34); AST 303 U/L (14-36); African American GFR (CKD) >90 (>60 ml/min/1.73 sqM); Albumin 2.5 g/dL (3.5-5.0); Alkaline Phosphatase 66 U/L (38-126); Anion Gap 7 mmol/L; Blood Urea Nitrogen 9 mg/dL (7-17); Calcium 6.8 mg/dL (8.4-10.2); Carbon Dioxide 17 mmol/L (22-30); Chloride 113 mmol/L (98-107); Glucose 117 mg/dL (74-99); Magnesium 1.5 mg/dL (1.6-2.3); Non-African American GFR(CKD) >90 (>60 ml/min/1.73 sqM); Potassium 4.3 mmol/L (3.5-5.1); Sodium 137 mmol/L (137-145); Total Bilirubin 1.1 mg/dL (0.2-1.3); Total Protein 4.5 g/dL (6.3-8.2)
[2020-10-19 06:14] LABS: Amphetamine Screen,Urine Detected (NotDetected); Barbiturate Screen,Urine Not Detected (NotDetected); Benzodiazepines Screen,Urine Not Detected (NotDetected); Cocaine Screen,Urine Not Detected (NotDetected); Methadone Screen, Urine Not Detected (NotDetected); Opiate Screen,Urine Not Detected (NotDetected); Oxycodone Screen, Urine Not Detected (NotDetected); Phencyclidine Screen,Urine Not Detected (NotDetected); Tricyclic Antidepressant,Urine Not Detected (NotDetected); Urn Cannabinoid Scrn Not Detected (NotDetected)
--- NOTE | 2020-10-19 06:29 | P.PN ---
Progress Note - Text Progress Note Date: 10/19/20 Transfer to [facility] being initiated for specialized surgical care including hepatic embolization of large hemorrhagic tumor and or liver resection not available at our institution. At this time, pending patient's Covid status to continue transfer per [facility] request.
[2020-10-19 06:38] LABS: Appearance,Urine Clear (Clear); Bilirubin,Urine Negative (Negative); Blood,Urine Negative (Negative); Color,Urine Yellow; Glucose,Urine (UA) Negative (Negative); Ketones,Urine 2+ (Negative); Leukocyte Esterase,Urine Negative (Negative); Nitrite,Urine Negative (Negative); PH, Urine 5.5 (5.0-8.0); Protein,Urine Negative (Negative); Specific Gravity,Urine 1.035 (1.001-1.035); Urobilinogen,Urine <2.0 mg/dL (<2.0)
--- NOTE | 2020-10-19 07:43 | P.PN ---
Progress Note - Text Progress Note Date: 10/19/20 Spoke to [facility] transferring team. Patient is stable including normotensive and heart rate in the 80s. Nasogastric tube without output. Recent repeat hemoglobin increased from 8.8-10.4. White blood cell count normal 10.0 down from 15.5. I spoke with admitting surgeon Dr. Olivo including request for transfer due to large hemorrhagic new hepatic tumor requiring hepatobiliary services. Transfer was accepted. I personally spoke to patient's family at bedside Julian that the patient will continue to be intubated and sedated to facilitate transfer to outside institution. All questions were addressed and answered.
[2020-10-19] MEDS ORDERED: Magnesium Replacement Protocol 1 EACH MISC MISCELLANE PRN (07:55)
[2020-10-19] MEDS: MAGNESIUM SULFATE-D5W PMX 1 GM in DEXTROSE/WATER 1 100ML.BAG IVPB SCH ×2 (08:02→09:03)
[2020-10-19] MEDS ORDERED: IPRATROPIUM-ALBUTEROL 3 ML NEB INHALATION PRN (08:38)
[2020-10-19] MEDS ORDERED: CHLORHEXIDINE GLUCONATE 15 ML CUP MUCOUS MEM SCH (09:00)
[2020-10-19] MEDS ORDERED: PANTOPRAZOLE 40 MG/10 ML VIAL IV SCH (09:00)
--- NOTE | 2020-10-19 09:11 | XR ---
EXAMINATION TYPE: XR chest 1V portable DATE OF EXAM: 10/19/2020 COMPARISON: 10/18/2020 HISTORY: Tube placement TECHNIQUE: Single frontal view of the chest is obtained. FINDINGS: Same limited by positioning lung apices not included on the exam. ET tube approximately 2. 1 cm above the johanna. NG tube appears in good position. Central line seen with tip overlying the SVC . No sizable pneumothorax as visualized. Subsegmental changes in the bilateral lower lobe region. Bhargav gical heidi suspected drain overlying the abdomen. IMPRESSION: 1. Basilar atelectasis favored over pneumonia correlate clinically.
--- NOTE | 2020-10-19 09:47 | CONS ---
CONSULTATION This is a 19-year-old young lady who came to the emergency room at about 8:00 p.m. last night and she came in mainly with discomfort in the chest, sharp pain in the left anterior chest when she took a deep breath. This was worse and she also had a near syncopal issue. Subsequent workup revealed that she had what seems to be an abdominal tenderness with intraabdominal hemorrhage. She went on to have urgent surgery yesterday for an explorative laparotomy and was found to have bleeding from a possible hemangioma in the liver. Hemoglobin had dropped. She was given a blood transfusion. She is on a ventilator right now, hemodynamically stable, planning to be transferred to [facility] for further care. It appears that her episode or the syncopal episode was related to a dramatic sudden blood loss with hemorrhage within the abdomen from a hemangioma in the liver, which she is known to have had. The syncope is related to acute sudden blood loss and abdominal pain and has no cardiac etiology. EKG is normal. She is resting comfortably, but is on a ventilator. I will obtain echocardiogram to assess LV function. She has not had any significant arrhythmia since she arrived here. CT of the abdomen last night revealed large amount of fluid in the abdomen consistent with intraperitoneal hemorrhage with a mass in the left upper quadrant between the stomach and the spleen. This is probably thought to be a hemangioma. However, there is no confirmatory diagnosis and the patient is going to [facility]. PAST MEDICAL HISTORY: 1. Known diagnosis of a hemangioma of the liver in the past. 2. Known cardiac history. PHYSICAL EXAMINATION: On examination, blood pressure is 128/70, pulse rate is 80 per minute. HEENT exam unremarkable. Neck is supple. No JVD. I do not hear a carotid bruit. Heart exam reveals S1, S2 heard normally. No significant murmur or rub. Lungs revealed ventilated-assisted breath sounds. Abdomen is soft. Detailed exam not performed. Lower extremities reveal diminished pulses. Central nervous system assessment not performed. EKG revealed sinus mechanism, no acute changes. IMPRESSION: Syncope, but this is not related to cardiac etiology, probably due to acute abdominal pain and acute abdominal blood loss with a hemangioma of the liver. RECOMMENDATIONS: No intervention from a cardiac standpoint. I would recommend an echo to assess LV function at bedside. The patient will be transferred to [facility]. Thank you very much for the consult. MMODL / IJN: [id number] /
[2020-10-19 10:21] LABS: HCT 30.2 % (34.0-46.0); HGB 10.3 gm/dL (11.4-16.0); MCH 28.9 pg (25.0-35.0); MCV 84.9 fL (80.0-100.0); Mean Platelet Volume 9.5; Platelet Count 188 k/uL (150-450); RBC 3.55 m/uL (3.80-5.40); RDW 14.3 % (11.5-15.5); WBC 12.6 k/uL (3.8-10.6)
--- NOTE | 2020-10-19 10:48 | P.CNPUL ---
History of Present Illness Consult date: 10/19/20 Requesting physician: Conchita Herrera Chief complaint: Abdominal pain. History of present illness: Pulmonary/critical care consultation dated 10/19/2020. 19-year-old otherwise healthy female, who presented to the emergency department on October 18, complaining of chest pain and abdominal pain. Apparently the pain was in the left lower chest area. It was worse with deep inspiration. Apparently radiates also to her shoulder. She apparently denied any shortness of breath but did have pain when she took a deep breath. The patient was evaluated and worked up in the emergency department. A computed tomography scan of the abdomen showed evidence of hemorrhage within the abdominal cavity. The patient was seen by surgery, had an exploratory laparotomy. 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 The bleeding was controlled, the patient did receive 4 units of PRBCs and 2 units of fresh frozen plasma. The patient was closed, and the plan was to transfer the patient to [facility] for more definitive treatment including either embolization or excision. The patient is currently on the mechanical ventilator. She is on the volume assist control mode rate of 14, tidal volume 400, FiO2 40%, with PEEP of 5. Arterial blood gases show a pO2 greater than 400, pCO2 38, and a pH of 7.3, on 100% oxygen. She is on propofol at 50 mcg/kg/m, and saline at 130 mL an hour. Her medications are reviewed. I did speak to her mother. Other than anxiety, the patient does not have any other significant past medical history. She does vape. White count 12.6, hemoglobin 10.3, hematocrit 30.2, and platelet count 188,000. Sodium 137, potassium 4.3, chlorides 113, CO2 17, anion gap 7, BUN 9, creatinine 0.5 calcium 6.8 and magnesium 1.5 AST 303 ALT 124 and albumin 2.5. Urine testing was negative and her COVID PCR was negative. Chest x-ray, CT angiogram, and CT of the abdomen and pelvis are reviewed. Of note, the CT of the abdomen showed a large amount of intermediate density fluid in the abdomen consistent with acute intraperitoneal hemorrhage. There is also a complex mass in the left upper quadrant between the stomach and the spleen. Origin of the mass is not clear but was separately found to be related to the left lobe of the liver. Review of Systems REVIEW OF SYSTEMS: CONSTITUTIONAL: A review of systems cannot be obtained as the patient's currently on the ventilator and sedated. She apparently came into the emergency department complaining of left chest and left upper abdominal pain. She also some shortness of breath on deep inspiration. NEUROLOGIC: [ Negative.] HEENT: [ Negative.] CARDIAC: [Negative.] PULMONARY: [Negative.] GI: [Negative.] : [Negative.] RHEUMATOLOGIC: [ Negative.] IMMUNOLOGIC: [ Negative.] ENDOCRINE: [Negative. ] DERMATOLOGIC: [Negative.] Past Medical History Past Medical History: No Reported History History of Any Multi-Drug Resistant Organisms: None Reported Past Surgical History: Section Additional Past Surgical History / Comment(s): 2017 C Section. 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 No significant issues noted on an osteopathic structural exam other than those noted in the History and Physical/Consult. Vitals: Vital Signs Temp Pulse Resp BP Pulse Ox 10/19/20 10:00 80 16 125/71 100 10/19/20 09:50 78 16 125/71 100 10/19/20 09:40 79 16 125/71 100 10/19/20 09:30 81 16 122/67 100 10/19/20 09:20 75 15 122/67 100 10/19/20 09:10 85 15 122/67 100 10/19/20 09:00 79 15 125/65 100 10/19/20 08:50 85 15 125/65 100 10/19/20 08:40 81 15 125/65 100 10/19/20 08:30 84 15 120/62 100 10/19/20 08:20 82 15 124/68 100 10/19/20 08:10 88 14 128/69 100 10/19/20 08:00 98.4 F 83 16 125/70 100 10/19/20 07:50 87 16 129/78 100 10/19/20 07:40 85 15 129/78 100 10/19/20 07:30 87 14 129/78 100 10/19/20 07:20 78 12 129/78 99 10/19/20 07:10 89 15 129/78 100 10/19/20 07:00 92 14 100 10/19/20 06:50 89 14 98 10/19/20 06:40 89 14 100 10/19/20 06:30 93 16 100 10/19/20 06:20 84 14 100 10/19/20 06:10 79 14 100 10/19/20 06:00 97.7 F 86 14 129/78 100 10/19/20 05:50 85 14 100 10/19/20 05:40 98 15 99 10/19/20 02:33 98.6 F 100 18 139/65 100 10/19/20 02:11 98.3 F 92 16 134/68 100 10/19/20 02:01 98.3 F 100 16 139/71 100 10/19/20 01:57 98.3 F 104 H 16 140/78 100 10/19/20 01:39 98.1 F 96 18 137/82 100 10/19/20 01:30 98.2 F 81 16 133/70 100 10/19/20 01:21 99 F 98 16 139/62 100 10/19/20 01:20 99 F 93 16 133/62 100 10/19/20 01:15 98.4 F 90 16 126/63 100 10/19/20 01:14 98.4 F 101 H 16 126/55 100 10/19/20 01:13 98.3 F 90 16 128/47 100 10/19/20 01:07 98.4 F 102 H 15 124/64 100 10/19/20 01:06 98.4 F 102 H 16 126/63 100 10/19/20 00:58 98.3 F 123 H 18 134/83 100 10/19/20 00:55 120 H 18 124/70 100 10/19/20 00:50 98.3 F 120 H 18 118/67 97 10/18/20 23:00 54 L 16 105/61 100 10/18/20 22:45 76 79/40 10/18/20 22:30 86 18 116/65 100 10/18/20 22:00 75 16 114/60 100 10/18/20 21:00 75 18 109/76 100 10/18/20 20:33 62 16 88/64 100 10/18/20 20:30 65 18 128/50 100 10/18/20 19:38 98.3 F 70 18 130/90 99 Intake and Output 10/18/20 10/19/20 10/19/20 22:59 06:59 14:59 Intake Total 4279.07 777.202 Output Total 2225 420 Balance 2054.07 357.202 Intake: IV 2400 Intake, IV Titration 130.07 777.202 Amount Magnesium Sulfate-D5w Pmx 200 1 gm In Dextrose/Water 1 100ml.bag @ 100 mls/hr IVPB Q1H [facility] Rx#: [id number] Sodium Chloride 0.9% 1, 130 520 000 ml @ 130 mls/hr IV . Q7H42M [facility] Rx#:[id number] propofoL 1,000 mg In 0.07 57.202 Empty Bag 1 bag @ Titrate IV .Q0M [facility] Rx#: [id number] Oral 0 Blood Product 1749 Ffp 24 Cpd Unit 300 [id number] Ffp 24 Pher Acda Cnt1 209 Unit [id number] Rc As-1 Unit 310 [id number] Rc As-1 Unit 310 [id number] Rc As-1 Unit 310 [id number] Rc As-1 Unit 310 [id number] Output: Drainage 165 Left Lower Abdomen 100 Left Upper Abdomen 65 Urine 675 255 Estimated Blood Loss 1550 Other: Voiding Method Indwelling Catheter Indwelling Catheter Weight 70.307 kg 70.307 kg ABP, PAP, CO, CI - Last 8 Hours Arterial Blood Pressure 147/72 Arterial Blood Pressure 145/70 Arterial Blood Pressure 141/69 Arterial Blood Pressure 146/65 Arterial Blood Pressure 139/67 Arterial Blood Pressure 151/70 Arterial Blood Pressure 144/69 Arterial Blood Pressure 146/66 Arterial Blood Pressure 143/72 Arterial Blood Pressure 153/68 Arterial Blood Pressure 129/62 Arterial Blood Pressure 124/19 Arterial Blood Pressure 119/50 Arterial Blood Pressure 124/54 Arterial Blood Pressure 124/57 Arterial Blood Pressure 109/50 Arterial Blood Pressure 123/52 Arterial Blood Pressure 122/54 Arterial Blood Pressure 118/47 Arterial Blood Pressure 137/56 Arterial Blood Pressure 125/56 Arterial Blood Pressure 125/52 Arterial Blood Pressure 149/56 Arterial Blood Pressure 149/56 Arterial Blood Pressure 136/67 Arterial Blood Pressure 168/96 No acute distress, intubated orally, and currently sedated with propofol. HEENT examination is grossly unremarkable. Neck supple. Full range of motion. No adenopathy thyromegaly or neck vein distention. Cardiovascular examination reveals regular rhythm rate. S1-S2 normal. No S3 or S4. No discernible murmur noted. Heart sounds distant. Heart rate 80 bpm. Lungs reveal occasional rhonchi bilaterally. No wheezes or crackles. Breath sounds equal bilaterally. Abdomen soft, without bowel sounds. Extremities are intact. No cyanosis clubbing or edema. Skin is without rash or lesion. Neurologic examination could not be adequately assessed as the patient's currently sedated. Results - Laboratory Findings CBC and BMP: 10/19/20 10:00 10/19/20 05:55 ABG ABG pH 7.29 (7.35-7.45) L 10/19/20 06:00 ABG pCO2 38 mmHg (35-45) 10/19/20 06:00 ABG pO2 >400 mmHg (83-108) H 10/19/20 06:00 ABG O2 Saturation 100.0 % (94-97) H 10/19/20 06:00 PT/INR, D-dimer PT 11.3 sec (9.0-12.0) 10/18/20 20:05 INR 1.1 (<1.2) 10/18/20 20:05 D-Dimer 1.33 mg/L FEU (<0.60) H 10/18/20 20:05 Abnormal lab findings: Abnormal Labs 10/18/20 10/18/20 10/18/20 20:05 20:05 20:05 WBC 13.3 H RBC Hgb Hct Neutrophils # 10.5 H APTT 20.6 L D-Dimer 1.33 H ABG pH ABG pO2 ABG HCO3 ABG O2 Saturation Sodium 135 L Chloride Carbon Dioxide 18 L Creatinine Glucose 122 H POC Glucose (mg/dL) Plasma Lactic Acid Maikol Calcium Magnesium AST 109 H ALT 55 H Alkaline Phosphatase 143 H Total Protein Albumin Urine Ketones Ur Amphetamines Screen Crossmatch 08/08/21 08/09/21 08/09/21 20:40 00:02 00:25 WBC 15.5 H RBC 3.38 L Hgb 8.8 L D Hct 27.5 L Neutrophils # 14.0 H APTT D-Dimer ABG pH ABG pO2 ABG HCO3 ABG O2 Saturation Sodium Chloride Carbon Dioxide Creatinine Glucose POC Glucose (mg/dL) 149 H Plasma Lactic Acid Maikol 2.4 H* Calcium Magnesium AST ALT Alkaline Phosphatase Total Protein Albumin Urine Ketones Ur Amphetamines Screen Crossmatch 10/19/20 10/19/20 10/19/20 00:41 02:30 05:55 WBC RBC Hgb Hct Neutrophils # APTT D-Dimer ABG pH ABG pO2 ABG HCO3 ABG O2 Saturation Sodium Chloride 113 H Carbon Dioxide 17 L Creatinine 0.50 L Glucose 117 H POC Glucose (mg/dL) Plasma Lactic Acid Maikol Calcium 6.8 L Magnesium 1.5 L AST 303 H ALT 124 H Alkaline Phosphatase Total Protein 4.5 L Albumin 2.5 L Urine Ketones Ur Amphetamines Screen Detected H Crossmatch See Detail 10/19/20 10/19/20 10/19/20 05:55 06:00 06:20 WBC RBC 3.55 L Hgb 10.4 L Hct 30.4 L Neutrophils # 8.1 H APTT D-Dimer ABG pH 7.29 L ABG pO2 >400 H ABG HCO3 18 L ABG O2 Saturation 100.0 H Sodium Chloride Carbon Dioxide Creatinine Glucose POC Glucose (mg/dL) Plasma Lactic Acid Maikol Calcium Magnesium AST ALT Alkaline Phosphatase Total Protein Albumin Urine Ketones 2+ H Ur Amphetamines Screen Crossmatch 10/19/20 10:00 WBC 12.6 H RBC 3.55 L Hgb 10.3 L Hct 30.2 L Neutrophils # APTT D-Dimer ABG pH ABG pO2 ABG HCO3 ABG O2 Saturation Sodium Chloride Carbon Dioxide Creatinine Glucose POC Glucose (mg/dL) Plasma Lactic Acid Maikol Calcium Magnesium AST ALT Alkaline Phosphatase Total Protein Albumin Urine Ketones Ur Amphetamines Screen Crossmatch - Diagnostic Findings Chest x-ray: image reviewed CT scan - chest: image reviewed Assessment and Plan Assessment: Acute intraperitoneal hemorrhage, supposedly from a large tumor located on the left lobe of the liver. Postop day #1, status post exploratory laparotomy, evacuation of hemoperitoneum, placement of the left upper quadrant drain, placement of the left lower quadrant drain, application of incisional wound VAC system, and peritoneal lavage/washout. Status post 4 units of PRBCs, and 2 units of fresh frozen plasma. No significant past medical history according to the patient's mother. Hyperchloremic non-anion gap metabolic acidosis. Elevated liver function test. Plan: Plan dated 10/19/2020. Currently, from the pulmonary/care standpoint, the patient's very stable. Oxygenation on the ventilator was turned down from 100% to 40% with a blood gases done this morning. The patient has received 4 units of PRBCs, and 2 units of fresh frozen plasma. Hemodynamics are stable. We added albuterol sulfate and ipratropium bromide breathing treatments. The patient is waiting to be transferred to [facility]. I did speak to the patient's mother. Time with Patient: Greater than 30
--- NOTE | 2020-10-19 11:09 | ECHOF ---
Referral Reason:assess lv function MEASUREMENTS -------- HEIGHT: 165.1 cm WEIGHT: 70.3 kg BP: 122/67 RVIDd: 2.3 cm (< 3.3) IVSd: 0.9 cm (0.6 - 1.1) LVIDd: 3.5 cm (3.9 - 5.3) LVPWd: 1.0 cm (0.6 - 1.1) IVSs: 1.2 cm LVIDs: 2.3 cm LVPWs: 1.2 cm LA Diam: 2.5 cm (2.7 - 3.8) Ao Diam: 2.3 cm (2.0 - 3.7) MV EXCURSION: 16.659 mm (> 18.000) MV EF SLOPE: 104 mm/s (70 - 150) EPSS: 0.3 cm MV E Nabil: 1.02 m/s MV DecT: 214 ms MV A Nabil: 0.77 m/s MV E/A Ratio: 1.33 RAP: 5.00 mmHg RVSP: 28.48 mmHg FINDINGS -------- Sinus rhythm. This was a technically good study. The left ventricular size is normal. Left ventricular wall thickness is normal. Overall left vent ricular systolic function is normal with, an EF between 60 - 65 %. The right ventricle is normal in size. The left atrium is normal in size. The right atrium is normal in size. The aortic valve is trileaflet, and appears structurally normal. No aortic stenosis or regurgitation. There is trace to mild mitral regurgitation. Mild tricuspid regurgitation present. Right ventricular systolic pressure is normal at < 35 mmHg. The pulmonic valve is normal. The aortic root size is normal. There is no pericardial effusion. CONCLUSIONS -------- 1. The left ventricular size is normal. 2. Left ventricular wall thickness is normal. 3. Overall left ventricular systolic function is normal with, an EF between 60 - 65 %. 4. The aortic valve is trileaflet, and appears structurally normal. No aortic stenosis or regurgitati on. 5. There is trace to mild mitral regurgitation. 6. Mild tricuspid regurgitation present. 7. There is no pericardial effusion. SENIOR JAVA ENGINEER: Ofelia Bautista RDCS
--- NOTE | 2020-10-19 11:26 | P.PN ---
Progress Note - Text Progress Note Date: 10/19/20 Patient reevaluated this morning. Vital signs are very stable at heart rates in the 80s. Blood pressure 110s to over 60s to 80s. Family is at bedside. Due to patient's large hepatic tumor with acute hemorrhage, immediate transfer to hepatobiliary center advised. Closest hepatobiliary center including liver transplant center is [facility]. Patient has been accepted for transfer pending insurance authorization. At this time, patient is stable for transfer via ambulance.
[2020-10-19 11:27] LABS: Hepatitis A Antibody IgM Non-Reactive (Non-Reactive); Hepatitis B Core IgM Non-Reactive (Non-Reactive); Hepatitis B Surface Antigen Non-Reactive (Non-Reactive); Hepatitis C IgG Antibody Non-Reactive (Non-Reactive)
[2020-10-19 11:51] LABS: Glucose,Whole Blood 88 mg/dL (75-99)
[2020-10-19] MEDS ORDERED: IPRATROPIUM-ALBUTEROL 3 ML NEB INHALATION SCH (12:00)
--- NOTE | 2020-10-19 14:00 | P.DS ---
Providers Date of admission: 10/19/20 03:51 Attending physician: Conchita Herrera Consults: 10/18/20 23:24 Consult Physician Stat Consulting Provider: Tim Swanson Consult Reason/Comments: syncope Do you want consulting provider notified?: Yes 10/19/20 02:01 Consult Physician Routine Consulting Provider: [facility] Consult Reason/Comments: Anesthesia Care Do you want consulting provider notified?: Yes 10/19/20 05:36 Consult Physician Stat Consulting Provider: Chivo Brian Consult Reason/Comments: Critical care management Do you want consulting provider notified?: Already Contacted 10/19/20 05:41 Consult Physician Stat Consulting Provider: Marcella Kelly Consult Reason/Comments: Hemorrhage Do you want consulting provider notified?: Already Contacted Primary care physician: Jackson Ricci Hospital Course: Refer to history of present illness for further details Patient Condition at Discharge: Serious Plan - Discharge Summary Discharge Rx Participant: No New Discharge Prescriptions: No Action No Known Home Medications Discharge Medication List No Known Home Medications 01/25/19 [History] Follow up Appointment(s)/Referral(s): Jackson Ricci MD [Primary Care Provider] - 1-2 days
--- NOTE | 2020-10-19 14:00 | P.HPIM ---
History of Present Illness 19-year-old female came in with the complaint of chest pain and abdominal pain. Patient's abdominal pain was worse when she took a deep breath. Patient underwent a computed tomography of the abdomen which showed evidence of hemorr boyd intra-abdominal cavity, Jody evaluated and had emergent expected laparotomy which showed blood and then the abdomen and a tumor about 10 cm in the left lobe of the liver which is probably hemangioma, patient received a total 4 units of PRBC and units of fresh frozen plasma. Patient probably will need embolization of the vessel because of which patient is being transferred to [facility] case was discussed by general surgery with the [facility] surgery accepted the patient. Patient is intubated presently on mechanical ventilator with assist-control ventilation at rate of 14 and tidal volume of 400 FiO2 40% PEEP of 5 ABGs did not show any significant abnormality. Patient is also on sedation with propofol and receiving IV fluids at 1 30 mL per hour patient was tested for Covid [address] angios the chest did not show any pulmonary embolism. Patient also had an echocardiogram here which showed ejection fraction of 60-65% without any significant valvular abnormalities. REVIEW OF SYSTEMS: Unable to obtain as patient is intubated PHYSICAL EXAMINATION: GENERAL: Patient is intubated sedated on propofol HEENT: Pupils are round and equally reacting to light. EOMI. No scleral icterus. No conjunctival pallor. Normocephalic, atraumatic. No pharyngeal erythema. No thyromegaly. CARDIOVASCULAR: S1 and S2 present. No murmurs, rubs, or gallops. PULMONARY: Chest is clear to auscultation, no wheezing or crackles. ABDOMEN: Soft, nontender, nondistended, normoactive bowel sounds. No palpable organomegaly. MUSCULOSKELETAL: No joint swelling or deformity. EXTREMITIES: No cyanosis, clubbing, or pedal edema. NEUROLOGICAL: Patient is presently sedated SKIN: No rashes. Assessment and plan -Intra-abdominal bleed: Status post emergent laparotomy patient probably has bleeding hemangioma of the liver. Patient will be transferred to [facility] for embolization of the vessel. Patient received 4 units of PRBC transfusion -Noniron gap metabolic acidosis due to hyperchloremia from IV fluids -Hypoglycemia magnesium will be replaced -Leukocytosis reactive -Transaminitis secondary to hepatocellular injury from bleeding hemangioma Patient is being transferred to [facility] for above-mentioned reasons. Past Medical History Past Medical History: No Reported History History of Any Multi-Drug Resistant Organisms: None Reported Past Surgical History: Section Additional Past Surgical History / Comment(s): 2017 C Section. 10/19/20 Exp Lap with 10 CM liver tumor Past Anesthesia/Blood Transfusion Reactions: No Reported Reaction Past Psychological History: ADD/ADHD, Anxiety Smoking Status: Current every day smoker, Vaper Past Alcohol Use History: None Reported Past Drug Use History: None Reported Medications and Allergies Home Medications Medication Instructions Recorded Confirmed Type No Known Home Medications 01/25/19 10/18/20 History Allergies Allergy/AdvReac Type Severity Reaction Status Date / Time No Known Allergies Allergy Verified 10/18/20 21:52 Physical Exam Vitals: Vital Signs Temp Pulse Resp BP Pulse Ox 10/19/20 13:30 90 19 119/64 100 10/19/20 13:20 101 H 23 115/65 100 10/19/20 13:10 93 20 115/65 100 10/19/20 13:00 90 20 100 10/19/20 12:50 89 21 100 10/19/20 12:40 93 19 112/64 100 10/19/20 12:30 82 16 10/19/20 12:20 85 17 100 10/19/20 12:10 85 16 119/63 100 10/19/20 12:00 97.9 F 80 15 100 10/19/20 11:55 80 10/19/20 11:50 84 14 100 10/19/20 11:45 87 10/19/20 11:40 84 15 118/69 100 10/19/20 11:30 82 16 100 10/19/20 11:20 86 15 115/64 100 10/19/20 11:10 82 18 115/64 100 10/19/20 11:00 87 18 100 10/19/20 10:50 84 17 100 10/19/20 10:40 89 17 111/68 100 10/19/20 10:30 79 12 98 10/19/20 10:20 78 15 100 10/19/20 10:10 81 15 122/69 100 10/19/20 10:00 80 16 100 10/19/20 09:50 78 16 100 10/19/20 09:40 79 16 125/71 100 10/19/20 09:30 81 16 122/67 100 10/19/20 09:20 75 15 100 10/19/20 09:10 85 15 100 10/19/20 09:00 79 15 100 10/19/20 08:50 85 15 100 10/19/20 08:40 81 15 125/65 100 10/19/20 08:30 84 15 120/62 100 10/19/20 08:20 82 15 124/68 100 10/19/20 08:10 88 14 128/69 100 10/19/20 08:00 98.4 F 83 16 125/70 100 10/19/20 07:50 87 16 129/78 100 10/19/20 07:40 85 15 129/78 100 10/19/20 07:30 87 14 129/78 100 10/19/20 07:20 78 12 129/78 99 10/19/20 07:10 89 15 129/78 100 10/19/20 07:00 92 14 100 10/19/20 06:50 89 14 98 10/19/20 06:40 89 14 100 10/19/20 06:30 93 16 100 10/19/20 06:20 84 14 100 10/19/20 06:10 79 14 100 10/19/20 06:00 97.7 F 86 14 129/78 100 10/19/20 05:50 85 14 100 10/19/20 05:40 98 15 99 10/19/20 02:33 98.6 F 100 18 139/65 100 10/19/20 02:11 98.3 F 92 16 134/68 100 10/19/20 02:01 98.3 F 100 16 139/71 100 10/19/20 01:57 98.3 F 104 H 16 140/78 100 10/19/20 01:39 98.1 F 96 18 137/82 100 10/19/20 01:30 98.2 F 81 16 133/70 100 10/19/20 01:21 99 F 98 16 139/62 100 10/19/20 01:20 99 F 93 16 133/62 100 10/19/20 01:15 98.4 F 90 16 126/63 100 10/19/20 01:14 98.4 F 101 H 16 126/55 100 10/19/20 01:13 98.3 F 90 16 128/47 100 10/19/20 01:07 98.4 F 102 H 15 124/64 100 08/09/21 01:06 98.4 F 102 H 16 126/63 100 10/19/20 00:58 98.3 F 123 H 18 134/83 100 10/19/20 00:55 120 H 18 124/70 100 10/19/20 00:50 98.3 F 120 H 18 118/67 97 10/18/20 23:00 54 L 16 105/61 100 10/18/20 22:45 76 79/40 10/18/20 22:30 86 18 116/65 100 10/18/20 22:00 75 16 114/60 100 10/18/20 21:00 75 18 109/76 100 10/18/20 20:33 62 16 88/64 100 10/18/20 20:30 65 18 128/50 100 10/18/20 19:38 98.3 F 70 18 130/90 99 Intake and Output 10/18/20 10/19/20 10/19/20 22:59 06:59 14:59 Intake Total 4279.07 1206.222 Output Total 2225 569 Balance 2054.07 637.222 Intake: IV 2400 Intake, IV Titration 130.07 1206.222 Amount Magnesium Sulfate-D5w Pmx 200 1 gm In Dextrose/Water 1 100ml.bag @ 100 mls/hr IVPB Q1H [facility] Rx#: [id number] Sodium Chloride 0.9% 1, 130 910 000 ml @ 130 mls/hr IV . Q7H42M [facility] Rx#:[id number] propofoL 1,000 mg In 0.07 96.222 Empty Bag 1 bag @ Titrate IV .Q0M [facility]ACH Rx#: [id number] Oral 0 Blood Product 1749 Ffp 24 Cpd Unit 300 [id number] Ffp 24 Pher Acda Cnt1 209 Unit [id number] Rc As-1 Unit 310 [id number] Rc As-1 Unit 310 [id number] Rc As-1 Unit 310 [id number] Rc As-1 Unit 310 [id number] Output: Drainage 245 Left Lower Abdomen 140 Left Upper Abdomen 105 Urine 675 324 Estimated Blood Loss 1550 Other: Voiding Method Indwelling Catheter Indwelling Catheter Weight 70.307 kg 70.307 kg ABP, PAP, CO, CI - Last 8 Hours Arterial Blood Pressure 145/64 Arterial Blood Pressure 154/59 Arterial Blood Pressure 166/59 Arterial Blood Pressure 149/64 Arterial Blood Pressure 163/69 Arterial Blood Pressure 163/63 Arterial Blood Pressure 147/61 Arterial Blood Pressure 146/65 Arterial Blood Pressure 145/64 Arterial Blood Pressure 142/65 Arterial Blood Pressure 119/64 Arterial Blood Pressure 134/65 Arterial Blood Pressure 150/66 Arterial Blood Pressure 152/54 Arterial Blood Pressure 142/65 Arterial Blood Pressure 133/64 Arterial Blood Pressure 139/75 Arterial Blood Pressure 138/69 Arterial Blood Pressure 134/65 Arterial Blood Pressure 152/74 Arterial Blood Pressure 87/45 Arterial Blood Pressure 147/72 Arterial Blood Pressure 145/70 Arterial Blood Pressure 141/69 Arterial Blood Pressure 146/65 Arterial Blood Pressure 139/67 Arterial Blood Pressure 151/70 Arterial Blood Pressure 144/69 Arterial Blood Pressure 146/66 Arterial Blood Pressure 143/72 Arterial Blood Pressure 153/68 Arterial Blood Pressure 129/62 Arterial Blood Pressure 124/19 Arterial Blood Pressure 119/50 Arterial Blood Pressure 124/54 Arterial Blood Pressure 124/57 Arterial Blood Pressure 109/50 Arterial Blood Pressure 123/52 Arterial Blood Pressure 122/54 Arterial Blood Pressure 118/47 Arterial Blood Pressure 137/56 Arterial Blood Pressure 125/56 Arterial Blood Pressure 125/52 Arterial Blood Pressure 149/56 Arterial Blood Pressure 149/56 Results CBC & Chem 7: 10/19/20 10:00 10/19/20 05:55 Labs: Abnormal Lab Results - Last 24 Hours (Table) 10/18/20 10/18/20 10/18/20 Range/Units 20:05 20:05 20:05 WBC 13.3 H (3.8-10.6) k/uL RBC (3.80-5.40) m/uL Hgb (11.4-16.0) gm/dL Hct (34.0-46.0) % Neutrophils # 10.5 H (1.3-7.7) k/uL APTT 20.6 L (22.0-30.0) sec D-Dimer 1.33 H (<0.60) mg/L FEU ABG pH (7.35-7.45) ABG pO2 (83-108) mmHg ABG HCO3 (21-25) mmol/L ABG O2 Saturation (94-97) % Sodium 135 L (137-145) mmol/L Chloride (98-107) mmol/L Carbon Dioxide 18 L (22-30) mmol/L Creatinine (0.52-1.04) mg/dL Glucose 122 H (74-99) mg/dL POC Glucose (mg/dL) (75-99) mg/dL Plasma Lactic Acid Maikol (0.7-2.0) mmol/L Calcium (8.4-10.2) mg/dL Magnesium (1.6-2.3) mg/dL AST 109 H (14-36) U/L ALT 55 H (4-34) U/L Alkaline Phosphatase 143 H (38-126) U/L Total Protein (6.3-8.2) g/dL Albumin (3.5-5.0) g/dL Urine Ketones (Negative) Ur Amphetamines Screen (NotDetected) Crossmatch 10/18/20 10/19/20 10/19/20 Range/Units 20:40 00:02 00:25 WBC 15.5 H (3.8-10.6) k/uL RBC 3.38 L (3.80-5.40) m/uL Hgb 8.8 L D (11.4-16.0) gm/dL Hct 27.5 L (34.0-46.0) % Neutrophils # 14.0 H (1.3-7.7) k/uL APTT (22.0-30.0) sec D-Dimer (<0.60) mg/L FEU ABG pH (7.35-7.45) ABG pO2 (83-108) mmHg ABG HCO3 (21-25) mmol/L ABG O2 Saturation (94-97) % Sodium (137-145) mmol/L Chloride (98-107) mmol/L Carbon Dioxide (22-30) mmol/L Creatinine (0.52-1.04) mg/dL Glucose (74-99) mg/dL POC Glucose (mg/dL) 149 H (75-99) mg/dL Plasma Lactic Acid Maikol 2.4 H* (0.7-2.0) mmol/L Calcium (8.4-10.2) mg/dL Magnesium (1.6-2.3) mg/dL AST (14-36) U/L ALT (4-34) U/L Alkaline Phosphatase (38-126) U/L Total Protein (6.3-8.2) g/dL Albumin (3.5-5.0) g/dL Urine Ketones (Negative) Ur Amphetamines Screen (NotDetected) Crossmatch 10/19/20 10/19/20 10/19/20 Range/Units 00:41 02:30 05:55 WBC (3.8-10.6) k/uL RBC (3.80-5.40) m/uL Hgb (11.4-16.0) gm/dL Hct (34.0-46.0) % Neutrophils # (1.3-7.7) k/uL APTT (22.0-30.0) sec D-Dimer (<0.60) mg/L FEU ABG pH (7.35-7.45) ABG pO2 (83-108) mmHg ABG HCO3 (21-25) mmol/L ABG O2 Saturation (94-97) % Sodium (137-145) mmol/L Chloride 113 H (98-107) mmol/L Carbon Dioxide 17 L (22-30) mmol/L Creatinine 0.50 L (0.52-1.04) mg/dL Glucose 117 H (74-99) mg/dL POC Glucose (mg/dL) (75-99) mg/dL Plasma Lactic Acid Maikol (0.7-2.0) mmol/L Calcium 6.8 L (8.4-10.2) mg/dL Magnesium 1.5 L (1.6-2.3) mg/dL AST 303 H (14-36) U/L ALT 124 H (4-34) U/L Alkaline Phosphatase (38-126) U/L Total Protein 4.5 L (6.3-8.2) g/dL Albumin 2.5 L (3.5-5.0) g/dL Urine Ketones (Negative) Ur Amphetamines Screen Detected H (NotDetected) Crossmatch See Detail 10/19/20 10/19/20 10/19/20 Range/Units 05:55 06:00 06:20 WBC (3.8-10.6) k/uL RBC 3.55 L (3.80-5.40) m/uL Hgb 10.4 L (11.4-16.0) gm/dL Hct 30.4 L (34.0-46.0) % Neutrophils # 8.1 H (1.3-7.7) k/uL APTT (22.0-30.0) sec D-Dimer (<0.60) mg/L FEU ABG pH 7.29 L (7.35-7.45) ABG pO2 >400 H (83-108) mmHg ABG HCO3 18 L (21-25) mmol/L ABG O2 Saturation 100.0 H (94-97) % Sodium (137-145) mmol/L Chloride (98-107) mmol/L Carbon Dioxide (22-30) mmol/L Creatinine (0.52-1.04) mg/dL Glucose (74-99) mg/dL POC Glucose (mg/dL) (75-99) mg/dL Plasma Lactic Acid Maikol (0.7-2.0) mmol/L Calcium (8.4-10.2) mg/dL Magnesium (1.6-2.3) mg/dL AST (14-36) U/L ALT (4-34) U/L Alkaline Phosphatase (38-126) U/L Total Protein (6.3-8.2) g/dL Albumin (3.5-5.0) g/dL Urine Ketones 2+ H (Negative) Ur Amphetamines Screen (NotDetected) Crossmatch 10/19/20 Range/Units 10:00 WBC 12.6 H (3.8-10.6) k/uL RBC 3.55 L (3.80-5.40) m/uL Hgb 10.3 L (11.4-16.0) gm/dL Hct 30.2 L (34.0-46.0) % Neutrophils # (1.3-7.7) k/uL APTT (22.0-30.0) sec D-Dimer (<0.60) mg/L FEU ABG pH (7.35-7.45) ABG pO2 (83-108) mmHg ABG HCO3 (21-25) mmol/L ABG O2 Saturation (94-97) % Sodium (137-145) mmol/L Chloride (98-107) mmol/L Carbon Dioxide (22-30) mmol/L Creatinine (0.52-1.04) mg/dL Glucose (74-99) mg/dL POC Glucose (mg/dL) (75-99) mg/dL Plasma Lactic Acid Maikol (0.7-2.0) mmol/L Calcium (8.4-10.2) mg/dL Magnesium (1.6-2.3) mg/dL AST (14-36) U/L ALT (4-34) U/L Alkaline Phosphatase (38-126) U/L Total Protein (6.3-8.2) g/dL Albumin (3.5-5.0) g/dL Urine Ketones (Negative) Ur Amphetamines Screen (NotDetected) Crossmatch Thrombosis Risk Factor Assmnt - Choose All That Apply Any of the Below Risk Factors Present?: Yes Each Factor Represents 1 point: Medical pt on bed rest Other Risk Factors: No Thrombosis Risk Factor Assessment Total Risk Factor Score: 1 Thrombosis Risk Factor Assessment Level: Low Risk
[2020-10-19 14:06] VITALS: BP 119/64; PULSE 90; RESP 19; TEMP 97.9
--- NOTE | 2020-10-19 17:59 | P.PN ---
Progress Note - Text Progress Note Date: 10/19/20 Follow-up phone call received from [facility] from hepatobiliary surgeon Dr. Sharp. He confirmed patient arrived hemodynamically stable without any further bleeding. Additionally, patient being planned for embolization of hepatic adenoma. Patient was extubated at the institution of arrival. Additional intraoperative questions were addressed including the abdomen was completely closed without any packing. Patient will be planned for resection of hepatic adenoma after interventional radiology embolization per report.
== END 2020-10-19 14:05 | disposition short-term general hospital, planned readmission (82) | DRG 981 ==
LOC: EC 19:32 → 3SCARD 23:26 → 2SICU 10-19 03:49 → OBSVTOIN 10-19 03:51
PROVIDERS: ADMIT Hospitalist; ATTEND Hospitalist
PROC: 0W3R0ZZ Control Bleeding in Genitourinary Tract, Open Approach (ICD-10-PCS; 2020-10-19)
PROC: 0F9 Hepatobiliary System and Pancreas, Drainage (ICD-10-PCS; 2020-10-19)
PROC: 2W13X6Z Compression of Abdominal Wall using Pressure Dressing (ICD-10-PCS; 2020-10-19)
PROC: 30233K1 Transfusion of Nonautologous Frozen Plasma into Peripheral Vein, Percutaneous Approach (ICD-10-PCS; 2020-10-19)
PROC: 30233N1 Transfusion of Nonautologous Red Blood Cells into Peripheral Vein, Percutaneous Approach (ICD-10-PCS; 2020-10-19)
PROC: 3E1M38Z Irrigation of Peritoneal Cavity using Irrigating Substance, Percutaneous Approach (ICD-10-PCS; principal; 2020-10-19 02:30)
DX: D18.03 Hemangioma of intra-abdominal structures (principal); K66.1 Hemoperitoneum; D62 Acute posthemorrhagic anemia; E87.2 Acidosis; R18.8 Other ascites; R58 Hemorrhage, not elsewhere classified; I95.9 Hypotension, unspecified; D72.829 Elevated white blood cell count, unspecified; E16.2 Hypoglycemia, unspecified; E87.8 Other disorders of electrolyte and fluid balance, not elsewhere classified; F17.290 Nicotine dependence, other tobacco product, uncomplicated; F41.9 Anxiety disorder, unspecified; F90.9 Attention-deficit hyperactivity disorder, unspecified type; Z20.822 Contact with and (suspected) exposure to COVID-19; D49.0 Neoplasm of unspecified behavior of digestive system
CPT/HCPCS: 36415; 71045; 71275; 74177; 80053; 80074; 80143; 80179; 80306; 80320; 81003; 81025; 82140; 82805; 83605; 83690; 83735; 84100; 84443; 84484; 85025; 85027; 85379; 85610; 85730; 86850; 86900; 86901; 86920; 87635; 93005; 93306; 94002; 94640

== ENCOUNTER 2020-11-02 16:35 | Observation (INO) | payer BC ==
[2020-11-02] MEDS ORDERED: SODIUM CHLORIDE 0.9% 1,000 ML IV STA (17:45)
[2020-11-02 18:24] LABS: ALT 481 U/L (4-34); AST 658 U/L (14-36); African American GFR (CKD) >90 (>60 ml/min/1.73 sqM); Albumin 3.2 g/dL (3.5-5.0); Alkaline Phosphatase 117 U/L (38-126); Anion Gap 8 mmol/L; Blood Urea Nitrogen 12 mg/dL (7-17); Calcium 8.9 mg/dL (8.4-10.2); Carbon Dioxide 22 mmol/L (22-30); Chloride 105 mmol/L (98-107); Glucose 107 mg/dL (74-99); Non-African American GFR(CKD) >90 (>60 ml/min/1.73 sqM); Potassium 4.5 mmol/L (3.5-5.1); Sodium 135 mmol/L (137-145); Total Bilirubin 0.3 mg/dL (0.2-1.3); Total Protein 5.9 g/dL (6.3-8.2)
[2020-11-02 18:26] LABS: Anisocytosis Slight; Basophils % (A) 0 %; Eosinophils # (A) 0.3 k/uL (0-0.7); Eosinophils % (A) 4 %; HCT 28.9 % (34.0-46.0); Hypochromasia Marked; Lymphocytes # (A) 2.2 k/uL (1.0-4.8); Lymphocytes % (A) 24 %; MCH 27.1 pg (25.0-35.0); MCHC 31.2 g/dL (31.0-37.0); MCV 86.9 fL (80.0-100.0); Mean Platelet Volume 7.6; Monocytes # (A) 0.4 k/uL (0-1.0); Monocytes % (A) 5 %; Neutrophils # (A) 5.7 k/uL (1.3-7.7); Neutrophils % (A) 64 %; Poikilocytosis Moderate; RBC 3.32 m/uL (3.80-5.40); WBC 8.9 k/uL (3.8-10.6)
--- NOTE | 2020-11-02 18:26 | ED ---
General Adult HPI - General Chief complaint: Syncope Stated complaint: Syncopal Episode Source: patient Mode of arrival: EMS Limitations: no limitations - History of Present Illness Initial comments: The patient is a 19-year-old female with past medical history of ruptured liver hemangioma/acute blood loss anemia who presents emergency department with syncope. The patient was seen in our emergency department on October 19 after she had some chest pain and syncope. Evaluation in the emergency department demonstrated that she had a large liver hemangioma which had ruptured the patient suffered from acute blood loss anemia. She was taken to the OR however surgery was unable to be completed here. She did receive 4 units of blood and was then transferred to [facility]. States that she did have surgery there and was just discharged on Monday. Today the patient was attempting to shower when she felt weak in her legs. She had some nausea and felt that she was given a thorough up. Her girlfriend was assisting her and had her sit down. Girlfriend states that she then went unconscious for a few seconds. EMS was called. Patient arrives stating that she feels improved at this time. Family states she has more color to her face. Blood pressure on arrival is stable for us. She admits to some mild cramping in the left upper quadrant however states this has been an ongoing issue and is denying any new abdominal pain. She states she is not concern for as she is homosexual. She denies any vaginal bleeding or discharge. No changes in her bowel or bladder habits. She denies any chest pain or shortness of breath. No fevers or chills. Patient is on Lovenox injections at home. No other alleviating, precipitating or modifying factors - Related Data Home Medications Medication Instructions Recorded Confirmed Acetaminophen Tab [Tylenol] 650 mg PO Q6H PRN 11/02/20 11/02/20 Docusate [Colace] 100 mg PO DAILY PRN 11/02/20 11/02/20 Enoxaparin [Lovenox] 30 mg SQ HS 11/02/20 11/02/20 Methocarbamol [Robaxin-750] 750 mg PO QID 11/02/20 11/02/20 oxyCODONE HCL [Roxicodone] 5 mg PO Q6H PRN 11/02/20 11/02/20 Allergies Allergy/AdvReac Type Severity Reaction Status Date / Time No Known Allergies Allergy Verified 11/02/20 19:18 Review of Systems ROS Statement: Those systems with pertinent positive or pertinent negative responses have been documented in the HPI. ROS Other: All systems not noted in ROS Statement are negative. Past Medical History Past Medical History: No Reported History Additional Past Medical History / Comment(s): Liver Mass History of Any Multi-Drug Resistant Organisms: None Reported Past Surgical History: Section Additional Past Surgical History / Comment(s): Liver mass removed@ [facility] Past Anesthesia/Blood Transfusion Reactions: No Reported Reaction Past Psychological History: ADD/ADHD, Anxiety Smoking Status: Vaper Past Alcohol Use History: None Reported Past Drug Use History: None Reported General Exam Limitations: no limitations Course Vital Signs 11/02/20 11/02/20 11/02/20 16:40 17:37 18:41 Temperature 98.2 F Pulse Rate 78 95 78 Respiratory 18 18 16 Rate Blood Pressure 112/71 117/57 122/56 O2 Sat by Pulse 98 100 100 Oximetry EKG Findings - EKG Comments: EKG Findings:: EKG demonstrates a sinus rhythm with a ventricular rate of 82. IN interval 100. QRS 88. QTC of 425. No acute ST segment elevations or depressions concerning for ischemic changes Medical Decision Making - Medical Decision Making Upon arrival patient is placed into the hallway. Because the patient's history we did move her to bed 2. Laboratory studies are conducted. Patient is sent for CT for abdomen and pelvis because of her recent surgical intervention. Laboratory studies results and demonstrate a hemoglobin of 9. Platelets 663. PTT 21.9. AST 658, ALT 481. Patient's blood pressure does remain stable in the emergency room. She does get up and go to the bathroom without syncopal episode. I did discuss the diagnosis, differential and treatment options. I did offer transfer to [facility] however patient reports that she would prefer to stay admitted to our facility. I did call and speak with Alok from Dr. Ricci's office. He does agree to observation of the patient. CBC will be completed every 6 hours. It A she is given a liter bolus of normal saline followed by 75 mL per hour. Patient remained in stable condition awaiting a bed on the floor - Lab Data Result diagrams: 11/02/20 17:59 11/02/20 17:59 Lab Results 11/02/20 11/02/20 11/02/20 Range/Units 17:59 17:59 17:59 WBC 8.9 (3.8-10.6) k/uL RBC 3.32 L (3.80-5.40) m/uL Hgb 9.0 L (11.4-16.0) gm/dL Hct 28.9 L (34.0-46.0) % MCV 86.9 (80.0-100.0) fL MCH 27.1 (25.0-35.0) pg MCHC 31.2 (31.0-37.0) g/dL RDW 17.0 H (11.5-15.5) % Plt Count 663 H D (150-450) k/uL MPV 7.6 Neutrophils % 64 % Lymphocytes % 24 % Monocytes % 5 % Eosinophils % 4 % Basophils % 0 % Neutrophils # 5.7 (1.3-7.7) k/uL Lymphocytes # 2.2 (1.0-4.8) k/uL Monocytes # 0.4 (0-1.0) k/uL Eosinophils # 0.3 (0-0.7) k/uL Basophils # 0.0 (0-0.2) k/uL Hypochromasia Marked Poikilocytosis Moderate Anisocytosis Slight PT 10.4 (9.0-12.0) sec INR 1.0 (<1.2) APTT 21.9 L (22.0-30.0) sec Sodium (137-145) mmol/L Potassium (3.5-5.1) mmol/L Chloride (98-107) mmol/L Carbon Dioxide (22-30) mmol/L Anion Gap mmol/L BUN (7-17) mg/dL Creatinine (0.52-1.04) mg/dL Est GFR (CKD-EPI)AfAm (>60 ml/min/1.73 sqM) Est GFR (CKD-EPI)NonAf (>60 ml/min/1.73 sqM) Glucose (74-99) mg/dL Calcium (8.4-10.2) mg/dL Total Bilirubin (0.2-1.3) mg/dL AST (14-36) U/L ALT (4-34) U/L Alkaline Phosphatase (38-126) U/L Total Protein (6.3-8.2) g/dL Albumin (3.5-5.0) g/dL Urine Color Light Yellow Urine Appearance Clear (Clear) Urine pH 7.0 (5.0-8.0) Ur Specific [place] 1.033 (1.001-1.035) Urine Protein Negative (Negative) Urine Glucose (UA) Negative (Negative) Urine Ketones Negative (Negative) Urine Blood Moderate H (Negative) Urine Nitrite Negative (Negative) Urine Bilirubin Negative (Negative) Urine Urobilinogen <2.0 (<2.0) mg/dL Ur Leukocyte Esterase Negative (Negative) Urine RBC 1 (0-5) /hpf Urine WBC 2 (0-5) /hpf Ur Squamous Epith Cells 1 (0-4) /hpf Urine Bacteria Rare H (None) /hpf Urine Mucus Rare H (None) /hpf Urine HCG, Qual (Not Detectd) Urine Opiates Screen (NotDetected) Ur Oxycodone Screen (NotDetected) Urine Methadone Screen (NotDetected) Ur Propoxyphene Screen (NotDetected) Ur Barbiturates Screen (NotDetected) U Tricyclic Antidepress (NotDetected) Ur Phencyclidine Scrn (NotDetected) Ur Amphetamines Screen (NotDetected) U Methamphetamines Scrn (NotDetected) U Benzodiazepines Scrn (NotDetected) Urine Cocaine Screen (NotDetected) U Marijuana (THC) Screen (NotDetected) Blood Type Blood Type Recheck Bld Type Recheck Status Antibody Screen Spec Expiration Date 11/02/20 11/02/20 11/02/20 Range/Units 17:59 17:59 17:59 WBC (3.8-10.6) k/uL RBC (3.80-5.40) m/uL Hgb (11.4-16.0) gm/dL Hct (34.0-46.0) % MCV (80.0-100.0) fL MCH (25.0-35.0) pg MCHC (31.0-37.0) g/dL RDW (11.5-15.5) % Plt Count (150-450) k/uL MPV Neutrophils % % Lymphocytes % % Monocytes % % Eosinophils % % Basophils % % Neutrophils # (1.3-7.7) k/uL Lymphocytes # (1.0-4.8) k/uL Monocytes # (0-1.0) k/uL Eosinophils # (0-0.7) k/uL Basophils # (0-0.2) k/uL Hypochromasia Poikilocytosis Anisocytosis PT (9.0-12.0) sec INR (<1.2) APTT (22.0-30.0) sec Sodium 135 L (137-145) mmol/L Potassium 4.5 (3.5-5.1) mmol/L Chloride 105 (98-107) mmol/L Carbon Dioxide 22 (22-30) mmol/L Anion Gap 8 mmol/L BUN 12 (7-17) mg/dL Creatinine 0.54 (0.52-1.04) mg/dL Est GFR (CKD-EPI)AfAm >90 (>60 ml/min/1.73 sqM) Est GFR (CKD-EPI)NonAf >90 (>60 ml/min/1.73 sqM) Glucose 107 H (74-99) mg/dL Calcium 8.9 (8.4-10.2) mg/dL Total Bilirubin 0.3 (0.2-1.3) mg/dL AST 658 H (14-36) U/L ALT 481 H (4-34) U/L Alkaline Phosphatase 117 (38-126) U/L Total Protein 5.9 L (6.3-8.2) g/dL Albumin 3.2 L (3.5-5.0) g/dL Urine Color Urine Appearance (Clear) Urine pH (5.0-8.0) Ur Specific [place] (1.001-1.035) Urine Protein (Negative) Urine Glucose (UA) (Negative) Urine Ketones (Negative) Urine Blood (Negative) Urine Nitrite (Negative) Urine Bilirubin (Negative) Urine Urobilinogen (<2.0) mg/dL Ur Leukocyte Esterase (Negative) Urine RBC (0-5) /hpf Urine WBC (0-5) /hpf Ur Squamous Epith Cells (0-4) /hpf Urine Bacteria (None) /hpf Urine Mucus (None) /hpf Urine HCG, Qual Not Detected (Not Detectd) Urine Opiates Screen Not Detected (NotDetected) Ur Oxycodone Screen Detected H (NotDetected) Urine Methadone Screen Not Detected (NotDetected) Ur Propoxyphene Screen Not Detected (NotDetected) Ur Barbiturates Screen Not Detected (NotDetected) U Tricyclic Antidepress Not Detected (NotDetected) Ur Phencyclidine Scrn Not Detected (NotDetected) Ur Amphetamines Screen Not Detected (NotDetected) U Methamphetamines Scrn Not Detected (NotDetected) U Benzodiazepines Scrn Not Detected (NotDetected) Urine Cocaine Screen Not Detected (NotDetected) U Marijuana (THC) Screen Not Detected (NotDetected) Blood Type Blood Type Recheck Bld Type Recheck Status Antibody Screen Spec Expiration Date 11/02/20 Range/Units 18:10 WBC (3.8-10.6) k/uL RBC (3.80-5.40) m/uL Hgb (11.4-16.0) gm/dL Hct (34.0-46.0) % MCV (80.0-100.0) fL MCH (25.0-35.0) pg MCHC (31.0-37.0) g/dL RDW (11.5-15.5) % Plt Count (150-450) k/uL MPV Neutrophils % % Lymphocytes % % Monocytes % % Eosinophils % % Basophils % % Neutrophils # (1.3-7.7) k/uL Lymphocytes # (1.0-4.8) k/uL Monocytes # (0-1.0) k/uL Eosinophils # (0-0.7) k/uL Basophils # (0-0.2) k/uL Hypochromasia Poikilocytosis Anisocytosis PT (9.0-12.0) sec INR (<1.2) APTT (22.0-30.0) sec Sodium (137-145) mmol/L Potassium (3.5-5.1) mmol/L Chloride (98-107) mmol/L Carbon Dioxide (22-30) mmol/L Anion Gap mmol/L BUN (7-17) mg/dL Creatinine (0.52-1.04) mg/dL Est GFR (CKD-EPI)AfAm (>60 ml/min/1.73 sqM) Est GFR (CKD-EPI)NonAf (>60 ml/min/1.73 sqM) Glucose (74-99) mg/dL Calcium (8.4-10.2) mg/dL Total Bilirubin (0.2-1.3) mg/dL AST (14-36) U/L ALT (4-34) U/L Alkaline Phosphatase (38-126) U/L Total Protein (6.3-8.2) g/dL Albumin (3.5-5.0) g/dL Urine Color Urine Appearance (Clear) Urine pH (5.0-8.0) Ur Specific [place] (1.001-1.035) Urine Protein (Negative) Urine Glucose (UA) (Negative) Urine Ketones (Negative) Urine Blood (Negative) Urine Nitrite (Negative) Urine Bilirubin (Negative) Urine Urobilinogen (<2.0) mg/dL Ur Leukocyte Esterase (Negative) Urine RBC (0-5) /hpf Urine WBC (0-5) /hpf Ur Squamous Epith Cells (0-4) /hpf Urine Bacteria (None) /hpf Urine Mucus (None) /hpf Urine HCG, Qual (Not Detectd) Urine Opiates Screen (NotDetected) Ur Oxycodone Screen (NotDetected) Urine Methadone Screen (NotDetected) Ur Propoxyphene Screen (NotDetected) Ur Barbiturates Screen (NotDetected) U Tricyclic Antidepress (NotDetected) Ur Phencyclidine Scrn (NotDetected) Ur Amphetamines Screen (NotDetected) U Methamphetamines Scrn (NotDetected) U Benzodiazepines Scrn (NotDetected) Urine Cocaine Screen (NotDetected) U Marijuana (THC) Screen (NotDetected) Blood Type O Positive Blood Type Recheck O Pos Bld Type Recheck Status No Antibody Screen NEGATIVE Spec Expiration Date 11/05/2020 - 2344 Disposition Clinical Impression: Anemia, Gastric tumor, Syncope Disposition: ADMITTED IP TO THIS [facility] Condition: Stable Is patient prescribed a controlled substance at d/c from ED?: No Decision to Admit Reason: Admit from EC Decision Date: 11/02/20 Decision Time: 20:19
[2020-11-02 18:34] LABS: Platelet Count 663 k/uL (150-450)
[2020-11-02 18:38] LABS: Prothrombin Time 10.4 sec (9.0-12.0)
[2020-11-02 18:40] LABS: Partial Thromboplastin Time 21.9 sec (22.0-30.0)
--- NOTE | 2020-11-02 18:54 | CT ---
EXAMINATION TYPE: CT abdomen pelvis w con DATE OF EXAM: 11/02/2020 COMPARISON: 10/18/2020 HISTORY: Abdominal pain and syncope post hemangioma removal x2 weeks ago. CT DLP: 809 mGycm Automated exposure control for dose reduction was used. CONTRAST: Performed with IV Contrast, patient injected with 100ml mL of Isovue 300. There is some patchy atelectasis at the lung bases. There is mild left pleural effusion. Heart size i s normal. There is no pericardial effusion. There is small pneumoperitoneum. There is some linear den sity in the subcutaneous fat from recent surgery over the anterior abdomen. Spleen is intact. Stomach is intact. There is no pancreatic mass. Gallbladder appears normal. The bile ducts are not dilated. There is no adrenal mass. Knee show satisfactory contrast opacification. There is no hydronephrosis. Ureters are not dilated. There is no retroperitoneal adenopathy. There is some mild low density free fluid in the pelvis. Bladder distends smoothly. Uterus is anteverted. There is no evidence of a pelvi c mass. There is no inguinal hernia. Lumbar vertebra have normal spacing and alignment. There is no compression fracture. Bony pelvis is i ntact. There are midline anterior abdomen skin heidi. Hip joints appear normal. There are some prom inent veins at the splenic hilum. IMPRESSION: Postsurgical changes. Left pleural effusion and left basilar atelectasis. Minimal low density fluid i n the abdomen. This is does not appear to be hemorrhagic. There is apparent removal of the complex ma ss in the left upper quadrant lateral to the stomach and anterior to the spleen compared to old exam.
[2020-11-02] MEDS ORDERED: LACTATED RINGERS 1,000 ML IV ONE (20:18)
[2020-11-02] MEDS ORDERED: NALOXONE 0.4 MG/ML 1 ML VIAL IV PRN (20:19)
[2020-11-02] MEDS ORDERED: DOCUSATE 100 MG CAP PO PRN (20:22)
[2020-11-02] MEDS ORDERED: SODIUM CHLORIDE 0.9% 1,000 ML IV SCH (20:30)
[2020-11-02] MEDS: PANTOPRAZOLE 40 MG/10 ML VIAL IVP SCH (20:39)
--- NOTE | 2020-11-02 21:07 | XR ---
EXAMINATION TYPE: XR chest 2V DATE OF EXAM: 11/02/2020 COMPARISON: 10/19/2020 HISTORY: Syncope TECHNIQUE: FINDINGS: There is some linear density left midlung field. There is some blunting of the left costoph renic angle posteriorly and pleural thickening apparently on the left posterior lower chest wall. The re are no hilar masses. IMPRESSION: There is some atelectasis and pleural thickening on the left side that is probably increa sed compared to last exam.
[2020-11-02] MEDS ORDERED: methocarbamoL 750 MG TAB PO STA (22:21)
[2020-11-02 22:24] LABS: Appearance,Urine Clear (Clear); Bacteria,Urine Rare /hpf; Bilirubin,Urine Negative (Negative); Blood,Urine Moderate (Negative); Color,Urine Light Yellow; Glucose,Urine (UA) Negative (Negative); Ketones,Urine Negative (Negative); Leukocyte Esterase,Urine Negative (Negative); Mucus,Urine Rare /hpf; Nitrite,Urine Negative (Negative); Protein,Urine Negative (Negative); RBC,Urine 1 /hpf (0-5); Specific Gravity,Urine 1.033 (1.001-1.035); Squamous Epithelial Cell,Urine 1 /hpf (0-4); Urobilinogen,Urine <2.0 mg/dL (<2.0); WBC,Urine 2 /hpf (0-5)
[2020-11-02 22:35] LABS: Amphetamine Screen,Urine Not Detected (NotDetected); Barbiturate Screen,Urine Not Detected (NotDetected); Benzodiazepines Screen,Urine Not Detected (NotDetected); Cocaine Screen,Urine Not Detected (NotDetected); Methadone Screen, Urine Not Detected (NotDetected); Opiate Screen,Urine Not Detected (NotDetected); Oxycodone Screen, Urine Detected (NotDetected); Phencyclidine Screen,Urine Not Detected (NotDetected); Tricyclic Antidepressant,Urine Not Detected (NotDetected); Urn Cannabinoid Scrn Not Detected (NotDetected)
--- NOTE | 2020-11-02 23:47 | CT ---
EXAMINATION TYPE: CT chest angio for PE DATE OF EXAM: 11/02/2020 COMPARISON: 10/18/2020 HISTORY: R/O PE CT DLP: 260.90 mGycm Automated exposure control for dose reduction was used. CONTRAST: Performed with IV Contrast, patient injected with 50 mL of Isovue 370. Images obtained from the thoracic inlet to the diaphragm with IV contrast. There are 3-D post process ed images. There is left pleural effusion. There is infiltrate and atelectasis left lung base. Heart size is nor mal. There is no pericardial effusion. There is minimal atelectasis right lung base. There is small pneumoperitoneum consistent with recent surgery. Thoracic aorta is intact. There is no aneurysm or dissection. There is normal opacification of the th oracic aorta. There is normal contrast opacification of the pulmonary arteries. There are no filling defects. There is no mediastinal adenopathy. There are no hilar masses. The thoracic spine is intact. IMPRESSION: No evidence of pulmonary embolism. Left lower lobe infiltrate and atelectasis with left pleural effus ion. Minimal atelectasis right lung base.
[2020-11-03 01:18] LABS: Anisocytosis Slight; HCT 29.4 % (34.0-46.0); HGB 9.2 gm/dL (11.4-16.0); Hypochromasia Marked; MCH 27.7 pg (25.0-35.0); MCHC 31.1 g/dL (31.0-37.0); Mean Platelet Volume 7.8; Platelet Count 618 k/uL (150-450); Poikilocytosis Slight; RBC 3.31 m/uL (3.80-5.40); RDW 16.7 % (11.5-15.5); WBC 8.4 k/uL (3.8-10.6)
[2020-11-03] MEDS: MORPHINE SULFATE 2 MG/ML SYRINGE IVP PRN ×4 (01:54→23:17)
[2020-11-03 06:58] LABS: Anisocytosis Slight; Basophils # (A) 0.1 k/uL (0-0.2); Basophils % (A) 1 %; Eosinophils # (A) 0.3 k/uL (0-0.7); Eosinophils % (A) 4 %; HGB 8.5 gm/dL (11.4-16.0); Hypochromasia Marked; Lymphocytes # (A) 2.5 k/uL (1.0-4.8); Lymphocytes % (A) 32 %; MCH 27.8 pg (25.0-35.0); MCHC 31.3 g/dL (31.0-37.0); MCV 88.8 fL (80.0-100.0); Mean Platelet Volume 7.9; Monocytes # (A) 0.4 k/uL (0-1.0); Monocytes % (A) 6 %; Neutrophils # (A) 4.2 k/uL (1.3-7.7); Neutrophils % (A) 55 %; Platelet Count 536 k/uL (150-450); Poikilocytosis Slight; RBC 3.04 m/uL (3.80-5.40); RDW 16.9 % (11.5-15.5); WBC 7.6 k/uL (3.8-10.6)
[2020-11-03 07:18] LABS: ALT 530 U/L (4-34); AST 618 U/L (14-36); African American GFR (CKD) >90 (>60 ml/min/1.73 sqM); Albumin 2.9 g/dL (3.5-5.0); Albumin/Globulin Ratio 1.2; Alkaline Phosphatase 112 U/L (38-126); Anion Gap 5 mmol/L; Blood Urea Nitrogen 8 mg/dL (7-17); Calcium 8.9 mg/dL (8.4-10.2); Carbon Dioxide 25 mmol/L (22-30); Chloride 107 mmol/L (98-107); Globulin 2.5 g/dL; Glucose 87 mg/dL (74-99); Non-African American GFR(CKD) >90 (>60 ml/min/1.73 sqM); Potassium 4.3 mmol/L (3.5-5.1); Sodium 137 mmol/L (137-145); Total Bilirubin 0.3 mg/dL (0.2-1.3); Total Protein 5.4 g/dL (6.3-8.2)
[2020-11-03] MEDS: LEVOFLOXACIN 750MG-D5W PMX 750 MG in DEXTROSE/WATER 1 150ML.BAG IVPB SCH (08:44)
[2020-11-03] MEDS: LACTATED RINGERS 1,000 ML IV SCH ×3 (08:48→23:18)
[2020-11-03] MEDS: ORPHENADRINE 30 MG/ML 2 ML VIAL IVP SCH ×2 (10:11→23:27)
[2020-11-03] MEDS: PANTOPRAZOLE 40 MG/10 ML VIAL IVP SCH (10:15)
--- NOTE | 2020-11-03 11:47 | P.GSCN ---
History of Present Illness Consult date: 11/03/20 History of present illness: CHIEF COMPLAINT: Syncope HISTORY OF PRESENT ILLNESS: This is a 19-year-old female who had presented to the ER on 10/19/2020 and at that time she had acute blood loss anemia due to intra-abdominal hemorrhage due to an acute hemorrhagic left liver lobe tumor. Patient was taken to surgery by Dr. Kelly and underwent open trauma exploratory laparotomy with control of hemorrhage and evacuation of hemoperitoneum. Patient did require massive blood transfusion. Patient then was transferred to [facility] to be seen by hepatobiliary surgeon. Patient did undergo surgery at [facility]. She was just discharged this past Monday. Patient reports yesterday she attempted to take a shower. And felt very weak. She passed out in the shower chair. Her friend was helping her and reported that patient passed out for about 1 minute. Patient reports no significant increase in abdominal pain. She reports that her pain is improving each day after surgery. She has been having nausea. No vomiting. She is able to tolerate diet. She has been having bowel movements. She denies any fever or chills. She had a computed tomography scan of the abdomen and pelvis showing postsurgical changes. Left pleural effusion and left basilar atelectasis. Minimal low density fluid in the abdomen. This does not appear to be hemo rrhagic. There is apparent removal of the complex mass in the left upper quadrant lateral to the stomach and anterior to his spleen compared to old exam. Small pneumoperitoneum noted. Surgical consult placed to to patient's recent hemorrhagic left liver lobe tumor and syncopal episode. Patient states that the liver tumor was benign. PAST MEDICAL HISTORY: See list. PAST SURGICAL HISTORY: See list. MEDICATIONS: See list. ALLERGIES: See list. SOCIAL HISTORY: No illicit drug use. REVIEW OF SYSTEMS: CONSTITUTIONAL: Denies fever or chills. HEENT: Denies blurred vision, vision changes, or eye pain. Denies hemoptysis CARDIOVASCULAR: Denies chest pain or pressure. RESPIRATORY: No shortness of breath. GASTROINTESTINAL: See HPI for pertinent findings HEMATOLOGIC: Denies bleeding disorders. GENITOURINARY: Denies any blood in urine or increased urinary frequency. SKIN: Denies pruitis. Denies rash. PHYSICAL EXAM: VITAL SIGNS: Reviewed GENERAL: Well-developed in no acute distress. HEENT: No sclera icterus. Extraocular movements grossly intact. Moist buccal mucosa. Head is atraumatic, normocephalic. No nasal drainage. ABDOMEN: Soft. Nondistended. Incision site clean dry and intact. Patient does have some mild tenderness up in the right upper quadrant. NEUROLOGIC: Alert and oriented. Cranial nerves II through XII grossly intact. LABORATORY DATA: WBC is 7.6 hemoglobin 9.2-8.5 platelets 536 Sodium 137 potassium 4.3 total bilirubin 0.3 AST 618 ALT 530 C reactive protein 2.1 IMAGING: Computed tomography scan of the abdomen as stated above Chest CTA no evidence of PE. Left lower lobe infiltrate and atelectasis with pleural effusion Minimal atelectasis right lung base ASSESSMENT: 1. Left liver lobe tumor status post recent resection at [facility] 2. Recent Acute blood loss anemia due to bleeding from large left liver tumor requiring transfer to [facility] on 10/19/2020 3. Syncope 4. Anemia 5. Elevated LFTs likely reactive from recent surgery PLAN: -Further recommendations forthcoming per surgeon -Continue regular diet -Continue IV fluids -Continue pain medication as needed Thank you for this consultation Physician [employer] note has been reviewed by physician. Signing provider agrees with the documented findings, assessment, and plan of care. Past Medical History Past Medical History: No Reported History Additional Past Medical History / Comment(s): Liver Mass History of Any Multi-Drug Resistant Organisms: None Reported Past Surgical History: Section Additional Past Surgical History / Comment(s): Liver mass removed@ hosp Past Anesthesia/Blood Transfusion Reactions: No Reported Reaction Past Psychological History: ADD/ADHD, Anxiety Smoking Status: Vaper Past Alcohol Use History: None Reported Past Drug Use History: None Reported Medications and Allergies Home Medications Medication Instructions Recorded Confirmed Type Acetaminophen Tab [Tylenol] 650 mg PO Q6H PRN 11/02/20 11/02/20 History Docusate [Colace] 100 mg PO DAILY PRN 11/02/20 11/02/20 History Enoxaparin [Lovenox] 30 mg SQ HS 11/02/20 11/02/20 History Methocarbamol [Robaxin-750] 750 mg PO QID 11/02/20 11/02/20 History oxyCODONE HCL [Roxicodone] 5 mg PO Q6H PRN 11/02/20 11/02/20 History Allergies Allergy/AdvReac Type Severity Reaction Status Date / Time No Known Allergies Allergy Verified 11/02/20 19:18 Surgical - Exam Vital Signs Temp Pulse Resp BP Pulse Ox 98.2 F 78 18 112/71 98 11/02/20 16:40 11/02/20 16:40 11/02/20 16:40 11/02/20 16:40 11/02/20 16:40 Results - Labs 11/03/20 06:25 11/03/20 06:25 Abnormal Lab Results - Last 24 Hours (Table) 11/02/20 11/02/20 11/02/20 Range/Units 17:59 17:59 17:59 RBC 3.32 L (3.80-5.40) m/uL Hgb 9.0 L (11.4-16.0) gm/dL Hct 28.9 L (34.0-46.0) % RDW 17.0 H (11.5-15.5) % Plt Count 663 H D (150-450) k/uL ESR (0-20) mm/hr APTT 21.9 L (22.0-30.0) sec D-Dimer (<0.60) mg/L FEU Sodium (137-145) mmol/L Glucose (74-99) mg/dL AST (14-36) U/L ALT (4-34) U/L C-Reactive Protein (<1.0) mg/dL Total Protein (6.3-8.2) g/dL Albumin (3.5-5.0) g/dL Urine Blood Moderate H (Negative) Urine Bacteria Rare H (None) /hpf Urine Mucus Rare H (None) /hpf Ur Oxycodone Screen (NotDetected) 11/02/20 11/02/20 11/02/20 Range/Units 17:59 17:59 20:41 RBC (3.80-5.40) m/uL Hgb (11.4-16.0) gm/dL Hct (34.0-46.0) % RDW (11.5-15.5) % Plt Count (150-450) k/uL ESR (0-20) mm/hr APTT (22.0-30.0) sec D-Dimer 7.04 H (<0.60) mg/L FEU Sodium 135 L (137-145) mmol/L Glucose 107 H (74-99) mg/dL AST 658 H (14-36) U/L ALT 481 H (4-34) U/L C-Reactive Protein (<1.0) mg/dL Total Protein 5.9 L (6.3-8.2) g/dL Albumin 3.2 L (3.5-5.0) g/dL Urine Blood (Negative) Urine Bacteria (None) /hpf Urine Mucus (None) /hpf Ur Oxycodone Screen Detected H (NotDetected) 11/02/20 11/02/20 11/03/20 Range/Units 20:41 20:41 00:34 RBC 3.31 L (3.80-5.40) m/uL Hgb 9.2 L (11.4-16.0) gm/dL Hct 29.4 L (34.0-46.0) % RDW 16.7 H (11.5-15.5) % Plt Count 618 H (150-450) k/uL ESR 50 H (0-20) mm/hr APTT (22.0-30.0) sec D-Dimer (<0.60) mg/L FEU Sodium (137-145) mmol/L Glucose (74-99) mg/dL AST (14-36) U/L ALT (4-34) U/L C-Reactive Protein 2.1 H (<1.0) mg/dL Total Protein (6.3-8.2) g/dL Albumin (3.5-5.0) g/dL Urine Blood (Negative) Urine Bacteria (None) /hpf Urine Mucus (None) /hpf Ur Oxycodone Screen (NotDetected) 11/03/20 11/03/20 Range/Units 06:25 06:25 RBC 3.04 L (3.80-5.40) m/uL Hgb 8.5 L (11.4-16.0) gm/dL Hct 27.0 L (34.0-46.0) % RDW 16.9 H (11.5-15.5) % Plt Count 536 H (150-450) k/uL ESR (0-20) mm/hr APTT (22.0-30.0) sec D-Dimer (<0.60) mg/L FEU Sodium (137-145) mmol/L Glucose (74-99) mg/dL AST 618 H (14-36) U/L ALT 530 H (4-34) U/L C-Reactive Protein (<1.0) mg/dL Total Protein 5.4 L (6.3-8.2) g/dL Albumin 2.9 L (3.5-5.0) g/dL Urine Blood (Negative) Urine Bacteria (None) /hpf Urine Mucus (None) /hpf Ur Oxycodone Screen (NotDetected) Diabetes panel 11/02/20 11/03/20 Range/Units 17:59 06:25 Sodium 135 L 137 (137-145) mmol/L Potassium 4.5 4.3 (3.5-5.1) mmol/L Chloride 105 107 (98-107) mmol/L Carbon Dioxide 22 25 (22-30) mmol/L BUN 12 8 (7-17) mg/dL Creatinine 0.54 0.54 (0.52-1.04) mg/dL Glucose 107 H 87 (74-99) mg/dL Calcium 8.9 8.9 (8.4-10.2) mg/dL AST 658 H 618 H (14-36) U/L ALT 481 H 530 H (4-34) U/L Alkaline Phosphatase 117 112 (38-126) U/L Total Protein 5.9 L 5.4 L (6.3-8.2) g/dL Albumin 3.2 L 2.9 L (3.5-5.0) g/dL Calcium panel 11/02/20 11/03/20 Range/Units 17:59 06:25 Calcium 8.9 8.9 (8.4-10.2) mg/dL Albumin 3.2 L 2.9 L (3.5-5.0) g/dL Pituitary panel 11/02/20 11/03/20 Range/Units 17:59 06:25 Sodium 135 L 137 (137-145) mmol/L Potassium 4.5 4.3 (3.5-5.1) mmol/L Chloride 105 107 (98-107) mmol/L Carbon Dioxide 22 25 (22-30) mmol/L BUN 12 8 (7-17) mg/dL Creatinine 0.54 0.54 (0.52-1.04) mg/dL Glucose 107 H 87 (74-99) mg/dL Calcium 8.9 8.9 (8.4-10.2) mg/dL Adrenal panel 11/02/20 11/03/20 Range/Units 17:59 06:25 Sodium 135 L 137 (137-145) mmol/L Potassium 4.5 4.3 (3.5-5.1) mmol/L Chloride 105 107 (98-107) mmol/L Carbon Dioxide 22 25 (22-30) mmol/L BUN 12 8 (7-17) mg/dL Creatinine 0.54 0.54 (0.52-1.04) mg/dL Glucose 107 H 87 (74-99) mg/dL Calcium 8.9 8.9 (8.4-10.2) mg/dL Total Bilirubin 0.3 0.3 (0.2-1.3) mg/dL AST 658 H 618 H (14-36) U/L ALT 481 H 530 H (4-34) U/L Alkaline Phosphatase 117 112 (38-126) U/L Total Protein 5.9 L 5.4 L (6.3-8.2) g/dL Albumin 3.2 L 2.9 L (3.5-5.0) g/dL
[2020-11-03 12:52] LABS: Anisocytosis Slight; HGB 8.3 gm/dL (11.4-16.0); Hypochromasia Marked; MCH 28.1 pg (25.0-35.0); MCV 87.9 fL (80.0-100.0); Mean Platelet Volume 7.7; Platelet Count 492 k/uL (150-450); Poikilocytosis Slight; RBC 2.96 m/uL (3.80-5.40); RDW 17.1 % (11.5-15.5); WBC 7.2 k/uL (3.8-10.6)
[2020-11-03] MEDS: METOCLOPRAMIDE 5 MG/ML 2 ML VIAL IVP SCH ×3 (13:14→23:17)
[2020-11-03 16:57] LABS: Anisocytosis Slight; Basophils # (A) 0.1 k/uL (0-0.2); Basophils % (A) 1 %; Eosinophils # (A) 0.2 k/uL (0-0.7); Eosinophils % (A) 3 %; HGB 8.7 gm/dL (11.4-16.0); Hypochromasia Marked; Lymphocytes # (A) 2.1 k/uL (1.0-4.8); Lymphocytes % (A) 28 %; MCH 27.8 pg (25.0-35.0); MCHC 31.2 g/dL (31.0-37.0); MCV 89.2 fL (80.0-100.0); Mean Platelet Volume 9.1; Monocytes # (A) 0.5 k/uL (0-1.0); Monocytes % (A) 7 %; Neutrophils # (A) 4.4 k/uL (1.3-7.7); Neutrophils % (A) 59 %; Platelet Count 478 k/uL (150-450); Poikilocytosis Slight; RBC 3.14 m/uL (3.80-5.40); RDW 16.9 % (11.5-15.5); WBC 7.5 k/uL (3.8-10.6)
--- NOTE | 2020-11-03 18:18 | P.HPIM ---
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 Patient had extensive diagnostic workup of CT abdomen and pelvis during emergency stay revealing small pneumoperitoneum, possibly due to surgery at [facility]. Additional diagnostic workup of CT a of the chest due to elevated d-dimer of 7 revealing small pleural effusions and infiltrate patient will be started on IV Levaquin 750 mg every 24 hours for infiltrate. Patient has significant medical history of liver mass with resection done at [facility], ADD/ADHD, and mixed anxiety depression. 11/03/2020 Patient seen and examined at bedside. Patient resting comfortably in bed. Patient continues to endorse mild abdominal pain and dizziness with movement. Patient denies fever, chills, chest pain, shortness of breath, or diarrhea at this time. Patient vital signs and diagnostic testing reviewed. We'll continue to trend elevated LFTs possibly secondary to recent surgery of liver tumor resection. We'll continue to monitor H&H's for acute blood loss possibly secondary to surgical intervention done at [facility]. Surgical consult on board due to recent surgery at [facility]. Review of Systems Constitutional: Reports fatigue, Reports weakness Ears, nose, mouth and throat: Reports headache Cardiovascular: Reports decreased exercise tolerance, Reports syncope Respiratory: Reports pain on inspiration Gastrointestinal: Reports abdominal pain Musculoskeletal: Reports muscle cramps, Reports muscle weakness Neurological: Reports syncope, Reports weakness Psychiatric: Reports anxiety Endocrine: Reports fatigue Past Medical History Past Medical History: No Reported History Additional Past Medical History / Comment(s): Liver Mass History of Any Multi-Drug Resistant Organisms: None Reported Past Surgical History: Section Additional Past Surgical History / Comment(s): Liver mass removed at [facility] Past Anesthesia/Blood Transfusion Reactions: No Reported Reaction Past Psychological History: ADD/ADHD, Anxiety Smoking Status: Vaper Past Alcohol Use History: Occasional Past Drug Use History: None Reported Medications and Allergies Home Medications and Allergies Comment(s): Medications and ALLERGIES reviewed Home Medications Medication Instructions Recorded Confirmed Type Acetaminophen Tab [Tylenol] 650 mg PO Q6H PRN 11/02/20 11/02/20 History Docusate [Colace] 100 mg PO DAILY PRN 11/02/20 11/02/20 History Enoxaparin [Lovenox] 30 mg SQ HS 11/02/20 11/02/20 History Methocarbamol [Robaxin-750] 750 mg PO QID 11/02/20 11/02/20 History oxyCODONE HCL [Roxicodone] 5 mg PO Q6H PRN 11/02/20 11/02/20 History Allergies Allergy/AdvReac Type Severity Reaction Status Date / Time No Known Allergies Allergy Verified 11/02/20 19:18 Physical Exam Vitals: Vital Signs Temp Pulse Pulse Pulse Pulse Resp BP 11/03/20 14:27 98.2 F 64 18 11/03/20 11:32 86 16 110/86 11/03/20 08:01 74 76 62 11/03/20 05:50 98.7 F 89 18 96/46 11/02/20 23:22 90 18 107/57 11/02/20 18:41 78 16 122/56 BP BP BP Pulse Ox 11/03/20 14:27 103/47 100 11/03/20 11:32 99 11/03/20 08:01 121/55 113/53 109/59 11/03/20 05:50 99 11/02/20 23:22 98 11/02/20 18:41 100 Intake and Output 11/03/20 11/03/20 11/03/20 06:59 14:59 22:59 Other: # Voids 0 Weight 68.039 kg - Constitutional General appearance: cooperative - EENT Eyes: EOMI, PERRLA ENT: normal oropharynx - Neck Neck: normal ROM Carotids: bilateral: upstroke normal Thyroid: bilateral: normal size - Respiratory Respiratory: bilateral: CTA (Anterior and posterior lung ferreira) - Cardiovascular Heart rate: 78 Rhythm: regular Heart sounds: normal: S1, S2 dorsalis pedis Peripheral Pulses: bilateral: Normal radial pulse Peripheral Pulses: bilateral: Normal - Gastrointestinal Surgical incision well approximated with heidi in place General gastrointestinal: soft - Integumentary Integumentary: pale - Musculoskeletal Musculoskeletal: generalized weakness - Psychiatric Psychiatric: A&O x's 3, appropriate affect, intact judgment & insight Results CBC & Chem 7: 11/03/20 16:09 08/24/21 06:25 Labs: Abnormal Lab Results - Last 24 Hours (Table) 11/02/20 11/02/20 11/02/20 Range/Units 17:59 17:59 17:59 RBC 3.32 L (3.80-5.40) m/uL Hgb 9.0 L (11.4-16.0) gm/dL Hct 28.9 L (34.0-46.0) % RDW 17.0 H (11.5-15.5) % Plt Count 663 H D (150-450) k/uL ESR (0-20) mm/hr APTT 21.9 L (22.0-30.0) sec D-Dimer (<0.60) mg/L FEU Sodium (137-145) mmol/L Glucose (74-99) mg/dL AST (14-36) U/L ALT (4-34) U/L C-Reactive Protein (<1.0) mg/dL Total Protein (6.3-8.2) g/dL Albumin (3.5-5.0) g/dL Urine Blood Moderate H (Negative) Urine Bacteria Rare H (None) /hpf Urine Mucus Rare H (None) /hpf Ur Oxycodone Screen (NotDetected) 11/02/20 11/02/20 11/02/20 Range/Units 17:59 17:59 20:41 RBC (3.80-5.40) m/uL Hgb (11.4-16.0) gm/dL Hct (34.0-46.0) % RDW (11.5-15.5) % Plt Count (150-450) k/uL ESR (0-20) mm/hr APTT (22.0-30.0) sec D-Dimer 7.04 H (<0.60) mg/L FEU Sodium 135 L (137-145) mmol/L Glucose 107 H (74-99) mg/dL AST 658 H (14-36) U/L ALT 481 H (4-34) U/L C-Reactive Protein (<1.0) mg/dL Total Protein 5.9 L (6.3-8.2) g/dL Albumin 3.2 L (3.5-5.0) g/dL Urine Blood (Negative) Urine Bacteria (None) /hpf Urine Mucus (None) /hpf Ur Oxycodone Screen Detected H (NotDetected) 11/02/20 11/02/20 11/03/20 Range/Units 20:41 20:41 00:34 RBC 3.31 L (3.80-5.40) m/uL Hgb 9.2 L (11.4-16.0) gm/dL Hct 29.4 L (34.0-46.0) % RDW 16.7 H (11.5-15.5) % Plt Count 618 H (150-450) k/uL ESR 50 H (0-20) mm/hr APTT (22.0-30.0) sec D-Dimer (<0.60) mg/L FEU Sodium (137-145) mmol/L Glucose (74-99) mg/dL AST (14-36) U/L ALT (4-34) U/L C-Reactive Protein 2.1 H (<1.0) mg/dL Total Protein (6.3-8.2) g/dL Albumin (3.5-5.0) g/dL Urine Blood (Negative) Urine Bacteria (None) /hpf Urine Mucus (None) /hpf Ur Oxycodone Screen (NotDetected) 11/03/20 11/03/20 11/03/20 Range/Units 06:25 06:25 11:50 RBC 3.04 L 2.96 L (3.80-5.40) m/uL Hgb 8.5 L 8.3 L (11.4-16.0) gm/dL Hct 27.0 L 26.0 L (34.0-46.0) % RDW 16.9 H 17.1 H (11.5-15.5) % Plt Count 536 H 492 H (150-450) k/uL ESR (0-20) mm/hr APTT (22.0-30.0) sec D-Dimer (<0.60) mg/L FEU Sodium (137-145) mmol/L Glucose (74-99) mg/dL AST 618 H (14-36) U/L ALT 530 H (4-34) U/L C-Reactive Protein (<1.0) mg/dL Total Protein 5.4 L (6.3-8.2) g/dL Albumin 2.9 L (3.5-5.0) g/dL Urine Blood (Negative) Urine Bacteria (None) /hpf Urine Mucus (None) /hpf Ur Oxycodone Screen (NotDetected) 11/03/20 Range/Units 16:09 RBC 3.14 L (3.80-5.40) m/uL Hgb 8.7 L (11.4-16.0) gm/dL Hct 28.0 L (34.0-46.0) % RDW 16.9 H (11.5-15.5) % Plt Count 478 H (150-450) k/uL ESR (0-20) mm/hr APTT (22.0-30.0) sec D-Dimer (<0.60) mg/L FEU Sodium (137-145) mmol/L Glucose (74-99) mg/dL AST (14-36) U/L ALT (4-34) U/L C-Reactive Protein (<1.0) mg/dL Total Protein (6.3-8.2) g/dL Albumin (3.5-5.0) g/dL Urine Blood (Negative) Urine Bacteria (None) /hpf Urine Mucus (None) /hpf Ur Oxycodone Screen (NotDetected) Chest x-ray: report reviewed CT scan - abdomen: report reviewed CT scan - chest: report reviewed Thrombosis Risk Factor Assmnt - Choose All That Apply Any of the Below Risk Factors Present?: Yes Each Factor Represents 1 point: History of prior major surgery (<1month) Other Risk Factors: No Other congenital or acquired thrombophilia - If yes, enter type in comment: No Thrombosis Risk Factor Assessment Total Risk Factor Score: 1 Thrombosis Risk Factor Assessment Level: Low Risk Assessment and Plan Assessment: Syncopal episode History of left liver lobe tumor status post resection [facility] Recent acute blood loss anemia due to bleeding from left liver tumor requiring transfer to [facility] Anemia possibly secondary to surgical intervention done at [facility] Elevated LFTs possibly due to secondary surgery done at [facility] ADD/ADHD Mixed anxiety and depression History of Nicotine dependence Full code Plan: Syncopal episode, IV hydration; obtain orthostatic vital signs; continue to monitor Anemia, continue to trend H&H's Elevated LFTs, possibly related to surgical intervention at [facility], continue to trend continue IV hydration Continue home medications Continue medical management Further recommendations, based on patient's clinical condition Time with Patient: Greater than 30
[2020-11-04] MEDS: LACTATED RINGERS 1,000 ML IV SCH ×4 (03:40→11:18)
[2020-11-04] MEDS: METOCLOPRAMIDE 5 MG/ML 2 ML VIAL IVP SCH ×2 (05:15→12:36)
[2020-11-04] MEDS: MORPHINE SULFATE 2 MG/ML SYRINGE IVP PRN (05:20)
[2020-11-04] MEDS: LEVOFLOXACIN 750MG-D5W PMX 750 MG in DEXTROSE/WATER 1 150ML.BAG IVPB SCH (08:02)
[2020-11-04] MEDS: PANTOPRAZOLE 40 MG/10 ML VIAL IVP SCH (08:03)
[2020-11-04 08:19] VITALS: RESP 18
--- NOTE | 2020-11-04 08:33 | XR ---
EXAMINATION TYPE: XR chest 2V DATE OF EXAM: 11/04/2020 COMPARISON: Chest x-ray and CT 11/02/2020 HISTORY: Pneumonia TECHNIQUE: Frontal and lateral views of the chest are obtained. FINDINGS: There is no pneumothorax seen. Subsegmental atelectatic changes are present in the left p erihilar location, left lower lobe, left pleural effusion is suspected. The cardiac silhouette size i s within normal limits. The osseous structures are intact. IMPRESSION: Left lower lobe atelectasis and associated effusion was pneumonia
[2020-11-04 09:19] LABS: Basophils # (A) 0.03 X 10*3/uL (0.00-0.10); Basophils % (A) 0.4 %; Eosinophils % (A) 4.1 %; HCT 26.6 % (37.2-46.3); HGB 7.8 g/dL (12.0-15.0); Lymphocytes # (A) 2.49 X 10*3/uL (0.90-5.00); MCH 26.4 pg (27.0-32.0); MCHC 29.3 g/dL (32.0-37.0); MCV 89.9 fL (80.0-97.0); Mean Platelet Volume 9.9 fL (9.5-12.2); Monocytes # (A) 0.44 X 10*3/uL (0.20-1.00); Neutrophils # (A) 3.97 X 10*3/uL (1.80-7.70); Neutrophils % (A) 54.1 %; Platelet Count 450 X 10*3/uL (140-440); RBC 2.96 X 10*6/uL (4.10-5.20); RDW 16.8 % (11.5-14.5); WBC 7.33 X 10*3/uL (4.50-10.00)
[2020-11-04 10:24] LABS: Albumin 3.2 g/dL (3.80-4.90); Albumin/Globulin Ratio 1.6 (1.60-3.17); Anion Gap 7.2 mmol/L (4.00-12.00); BUN/Creat Ratio 11.67 Ratio (12.00-20.00); Calcium 8.4 mg/dL (8.7-10.3); Carbon Dioxide 25.8 mmol/L (21.6-31.8); Non-African American GFR(CKD) 130.3 (60.0-200.0); Potassium 4.3 mmol/L (3.5-5.5); Total Bilirubin 0.3 mg/dL (0.2-1.2); Total Protein 5.2 g/dL (6.2-8.2)
[2020-11-04 10:25] LABS: Magnesium 1.7 mg/dL (1.5-2.4)
--- NOTE | 2020-11-04 13:38 | P.PN ---
Subjective Progress Note Date: 11/04/20 CHIEF COMPLAINT: Syncope HISTORY OF PRESENT ILLNESS: Patient reports feeling better today. She has been up and ambulating. No further syncopal episodes. She is receiving another fluid bolus for orthostatic hypotension. Her hemoglobin has dropped to 7.8. She is tolerating a regular diet. Denies any nausea vomiting. Denies any increase in abdominal pain. Denies any new abdominal pain. Afebrile Patient seen and examined with Dr. gonzales PHYSICAL EXAM: VITAL SIGNS: Reviewed. GENERAL: Well-developed in no acute distress. HEENT: No sclera icterus. Extraocular movements grossly intact. Moist buccal mucosa. Head is atraumatic, normocephalic. ABDOMEN: Soft. Nondistended. Right upper quadrant tenderness. Incision site clean dry and intact NEUROLOGIC: Alert and oriented. Cranial nerves II through XII grossly intact. ASSESSMENT: 1. Left liver lobe tumor status post recent resection at [facility] 2. Recent Acute blood loss anemia due to bleeding from large left liver tumor requiring transfer to [facility] on 10/19/2020 3. Syncope 4. Anemia likely due to recent acute blood loss anemia from hemorrhagic liver tumor as well as recent surgeries. No active bleeding noted. 5. Elevated LFTs likely reactive from recent surgery 6. Small pneumoperitoneum noted on CAT scan finding likely secondary to patient's recent surgery PLAN: -Patient is stable from surgical standpoint for discharge -Recommend that patient follows up with Dr. Kelly in 1 week as well as her [facility] surgeon Physician Supervisor [place] note has been reviewed by physician. Signing provider agrees with the documented findings, assessment, and plan of care. Objective - Vital Signs Vital signs: Vital Signs Temp 98.5 F 11/04/20 07:00 Pulse 70 11/04/20 08:00 Resp 18 11/04/20 08:00 BP 124/81 11/04/20 07:00 Pulse Ox 96 11/04/20 07:00 Intake & Output 11/03/20 11/04/20 11/04/20 18:59 06:59 18:59 Intake Total 300 Output Total 0 Balance 300 0 Weight 68.039 kg Intake: Oral 300 Output: Urine 0 Other: Voiding Method Toilet # Voids 1 1 1 - Labs CBC & Chem 7: 11/04/20 06:27 11/04/20 06:27 Labs: Abnormal Lab Results - Last 24 Hours (Table) 11/03/20 11/04/20 11/04/20 Range/Units 16:09 06:27 06:27 RBC 3.14 L 2.96 L (3.80-5.40) m/uL Hgb 8.7 L 7.8 L (11.4-16.0) gm/dL Hct 28.0 L 26.6 L (34.0-46.0) % MCH 26.4 L (27.0-32.0) pg MCHC 29.3 L (32.0-37.0) g/dL RDW 16.9 H 16.8 H (11.5-15.5) % Plt Count 478 H 450 H (150-450) k/uL Absolute Nucleated RBC 0.03 H (0.00-0.00) X 10*3/uL Immature Gran # 0.10 H (0.00-0.04) X 10*3/uL NRBC/100 WBC Diff 0.4 H (0.0-0.0) /100 WBCS BUN 7.0 L (9.0-27.0) mg/dL BUN/Creatinine Ratio 11.67 L (12.00-20.00) Ratio Calcium 8.4 L (8.7-10.3) mg/dL AST 294 H (13-35) U/L ALT 432 H (8-44) U/L Total Protein 5.2 L (6.2-8.2) g/dL Albumin 3.20 L (3.80-4.90) g/dL Microbiology - Last 24 Hours (Table) 11/03/20 00:34 Blood Culture - Preliminary Blood No Growth after 24 hours 11/03/20 00:34 Blood Culture - Preliminary Blood No Growth after 24 hours
[2020-11-04 15:10] VITALS: BP 104/68; PULSE 82; TEMP 98.7
[2020-11-04 17:57] LABS: Anisocytosis Slight; Basophils # (A) 0.1 k/uL (0-0.2); Basophils % (A) 1 %; Eosinophils # (A) 0.1 k/uL (0-0.7); Eosinophils % (A) 2 %; HCT 31.2 % (34.0-46.0); HGB 9.6 gm/dL (11.4-16.0); Hypochromasia Marked; Lymphocytes # (A) 2.1 k/uL (1.0-4.8); Lymphocytes % (A) 28 %; MCH 27.9 pg (25.0-35.0); MCHC 30.8 g/dL (31.0-37.0); MCV 90.5 fL (80.0-100.0); Mean Platelet Volume 7.3; Monocytes # (A) 0.3 k/uL (0-1.0); Monocytes % (A) 3 %; Neutrophils # (A) 4.8 k/uL (1.3-7.7); Neutrophils % (A) 64 %; Platelet Count 550 k/uL (150-450); Poikilocytosis Slight; RBC 3.45 m/uL (3.80-5.40); RDW 17.6 % (11.5-15.5); WBC 7.5 k/uL (3.8-10.6)
--- NOTE | 2020-11-04 18:30 | P.DS ---
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 Patient had extensive diagnostic workup of CT abdomen and pelvis during emergency stay revealing small pneumoperitoneum, possibly due to surgery at [facility]. Additional diagnostic workup of CT a of the chest due to elevated d-dimer of 7 revealing small pleural effusions and infiltrate patient will be started on IV Levaquin 750 mg every 24 hours for infiltrate. Patient has significant medical history of liver mass with resection done at [facility], ADD/ADHD, and mixed anxiety depression. Patient was evaluated by surgical team due to recent surgical intervention at [facility] of resection of liver tumor and acute ane niraj; trending of H&H's occurred with stable hemoglobin of 9.6 upon discharge. Patient to follow-up with general surgery on outpatient basis and surgical team at [facility] for postsurgical care. Patient to follow-up with primary care 1-2 days for trending of hemoglobin and hematocrit. Assessment: Syncopal episode History of left liver lobe tumor status post resection [facility] Recent acute blood loss anemia due to bleeding from left liver tumor requiring transfer to [facility] Anemia possibly secondary to surgical intervention done at [facility] Elevated LFTs possibly due to secondary surgery done at [facility] ADD/ADHD Mixed anxiety and depression History of Nicotine dependence Full code Final diagnosis Syncopal episode related to orthostatic hypotension, resuscitation with IV fluids Anemia due to recent acute blood loss due to bleeding from left liver tumor requiring transfer [facility] for surgical intervention Elevated LFTs secondary to surgical intervention done at [facility] Possible pneumonia continue on by mouth Levaquin for 5 day duration Health Concerns: Complexity of postsurgical intervention done at [facility] Complexity of medical treatment plan Pertinent Studies: CT abdomen and pelvis, see dictation Serial chest x-rays CT of the chest see dictation Procedures: None performed during hospital stay Patient Condition at Discharge: Stable Plan - Discharge Summary Discharge Rx Participant: No New Discharge Prescriptions: New Levofloxacin [Levaquin] 750 mg PO DAILY 5 Days #5 tab Continue Docusate [Colace] 100 mg PO DAILY PRN PRN Reason: Constipation oxyCODONE HCL [Roxicodone] 5 mg PO Q6H PRN PRN Reason: Pain Methocarbamol [Robaxin-750] 750 mg PO QID Discontinued Acetaminophen Tab [Tylenol] 650 mg PO Q6H PRN PRN Reason: Pain Enoxaparin [Lovenox] 30 mg SQ HS Discharge Medication List Docusate [Colace] 100 mg PO DAILY PRN 11/02/20 [History] Methocarbamol [Robaxin-750] 750 mg PO QID 11/02/20 [History] oxyCODONE HCL [Roxicodone] 5 mg PO Q6H PRN 11/02/20 [History] Levofloxacin [Levaquin] 750 mg PO DAILY 5 Days #5 tab 11/04/20 [Rx] Follow up Appointment(s)/Referral(s): Jackson Ricci MD [Primary Care Provider] - 1-2 days Marcella Kelly MD [STAFF PHYSICIAN] - 1 Week Ambulatory/Diagnostic Orders: Complete Blood Count w/diff [LAB.AMB] Location: None Selected Comprehensive Metabolic Panel [LAB.AMB] Location: None Selected Magnesium [LAB.AMB] Location: None Selected Prothrombin Time INR [LAB.AMB] Location: None Selected Patient Instructions/Handouts: Iron Rich Diet (DC), Syncope (DC), Community Acquired Pneumonia (DC), Anemia (DC) Activity/Diet/Wound Care/Special Instructions: Diet as tolerated Discharge Disposition: HOME SELF-CARE
== END 2020-11-04 20:50 | disposition home or self-care (01) ==
LOC: EC 16:35 → 6NMEDSUR 20:19
PROVIDERS: ADMIT Family Medicine; ATTEND Family Medicine
DX: I95.1 Orthostatic hypotension (principal); D62 Acute posthemorrhagic anemia; R79.89 Other specified abnormal findings of blood chemistry; R11.0 Nausea; J98.11 Atelectasis; Z86.018 Personal history of other benign neoplasm; F17.200 Nicotine dependence, unspecified, uncomplicated; F41.8 Other specified anxiety disorders; F32.9 Major depressive disorder, single episode, unspecified; F90.9 Attention-deficit hyperactivity disorder, unspecified type; J90 Pleural effusion, not elsewhere classified; R16.0 Hepatomegaly, not elsewhere classified; Z98.891 History of uterine scar from previous surgery; Z98.890 Other specified postprocedural states; Z79.899 Other long term (current) drug therapy; Z79.01 Long term (current) use of anticoagulants
CPT/HCPCS: 96376 ×3; 96361 ×4; 96366 ×2; 96365; 96375 ×2; 99285; 36415; 93005; 86900; 86901; 85379; 80053 ×3; 85652; 83605; 83735 ×2; 84484; 85025 ×3; 85027; 85610; 85730; 86850; 86140; 81001; 81025; 87040; 80306; 84145; 71046 ×2; 71275; 74177; G0378 ×3; J2360; J2765 ×2; J2270 ×2; J1956 ×2; C9113 ×3; Q9967 ×2

== ENCOUNTER 2020-11-12 10:04 | Emergency (ER) | payer BC ==
[2020-11-12 10:13] VITALS: TEMP 98.1
[2020-11-12] MEDS ORDERED: KETOROLAC 15 MG/ML 1 ML VIAL IVP STA (10:47)
--- NOTE | 2020-11-12 11:05 | ED ---
General Adult HPI - General Chief complaint: Abdominal Pain Stated complaint: SY Time Seen by Provider: 11/12/20 10:10 Source: patient, RN notes reviewed, old records reviewed Mode of arrival: ambulatory Limitations: no limitations - History of Present Illness Initial comments: This is a 19-year-old female presents emergency department stating that October 18 she had a laparoscopy at [place] she told me that she had an internal bleed as well as a tumor on her liver and she's just on the bed [facility]. patient states at [facility] they did another surgery to remove the tumor off her liver. Patient states the discharge her home and she later came back to the emergency department and was diagnosed with pneumonia. Patient comes in today because she's been experiencing some left sided chest discomfort on the lower lateral aspect of her chest she states this is been here since she's had pneumonia but it is getting worse. Patient denies any cough but she states she takes a deep breath it does hurt more. Patient states the pain is definitely increasing. Patient denies any fever chills. Patient denies any anterior chest pain patient denies any abdominal pain patient as nausea vomiting diarrhea per patient denies any swelling legs or calf tenderness. Patient states she has not been on any blood thinners since she was last seen for pneumonia. - Related Data Home Medications Medication Instructions Recorded Confirmed Docusate [Colace] 100 mg PO DAILY PRN 11/02/20 11/12/20 Methocarbamol [Robaxin-750] 750 mg PO QID 11/02/20 11/12/20 oxyCODONE HCL [Roxicodone] 5 mg PO Q6H PRN 11/02/20 11/12/20 Previous Rx's Medication Instructions Recorded Ketorolac [Toradol] 10 mg PO Q6HR #15 tab 11/12/20 Allergies Allergy/AdvReac Type Severity Reaction Status Date / Time No Known Allergies Allergy Verified 11/12/20 12:08 Review of Systems ROS Statement: Those systems with pertinent positive or pertinent negative responses have been documented in the HPI. ROS Other: All systems not noted in ROS Statement are negative. Past Medical History Past Medical History: No Reported History Additional Past Medical History / Comment(s): Liver Mass History of Any Multi-Drug Resistant Organisms: None Reported Past Surgical History: Section Additional Past Surgical History / Comment(s): Liver mass removed at [facility], exploratory laproscopy Past Anesthesia/Blood Transfusion Reactions: No Reported Reaction Past Psychological History: ADD/ADHD, Anxiety Smoking Status: Vaper Past Alcohol Use History: None Reported Past Drug Use History: None Reported General Exam - General Exam Comments Initial Comments: GENERAL: Patient is well-developed and well-nourished. Patient is nontoxic and well- hydrated and is in mild distress. ENT: Neck is soft and supple. No significant lymphadenopathy is noted. Oropharynx is clear. Moist mucous membranes. Neck has full range of motion without eliciting any pain. EYES: The sclera were anicteric and conjunctiva were pink and moist. Extraocular movements were intact and pupils were equal round and reactive to light. Eyelids were unremarkable. PULMONARY: Unlabored respirations. Patient has diminished breath sounds in the left lower base CARDIOVASCULAR: There is a regular rate and rhythm without any murmurs gallops or rubs. ABDOMEN: Soft and nontender with normal bowel sounds. Surgical incision appears to be healing well SKIN: Skin is clear with no lesions or rashes and otherwise unremarkable. NEUROLOGIC: Patient is alert and oriented x3. Cranial nerves II through XII are grossly intact. Motor and sensory are also intact. Normal speech, volume and content. Symmetrical smile. MUSCULOSKELETAL: Normal extremities with adequate strength and full range of motion. No lower extremity swelling or edema. No calf tenderness. LYMPHATICS: No significant lymphadenopathy is noted PSYCHIATRIC: Normal psychiatric evaluation. Limitations: no limitations Course Vital Signs 11/12/20 11/12/20 11/12/20 10:10 10:46 13:06 Temperature 98.1 F Pulse Rate 78 66 Respiratory 18 20 18 Rate Blood Pressure 120/77 125/75 O2 Sat by Pulse 99 99 Oximetry 11/12/20 13:21 Temperature Pulse Rate 70 Respiratory 18 Rate Blood Pressure 125/70 O2 Sat by Pulse 100 Oximetry Medical Decision Making - Medical Decision Making EKG shows sinus rhythm at 66 bpm NH interval 104 QRS is 70 QT interval 388 QTC is 46 per patient's EKG shows no ST segment elevation or depression. CT showed no PE no infiltrate only a small left-sided pleural effusion which was correlating with the patient's pain. - Lab Data Result diagrams: 11/12/20 11:01 11/12/20 11:01 Lab Results 11/12/20 11/12/20 11/12/20 Range/Units 11:01 11:01 11:01 WBC 4.4 (3.8-10.6) k/uL RBC 3.83 (3.80-5.40) m/uL Hgb 10.9 L (11.4-16.0) gm/dL Hct 33.2 L (34.0-46.0) % MCV 86.8 (80.0-100.0) fL MCH 28.4 (25.0-35.0) pg MCHC 32.7 (31.0-37.0) g/dL RDW 16.8 H (11.5-15.5) % Plt Count 258 (150-450) k/uL MPV 8.1 Neutrophils % 57 % Lymphocytes % 31 % Monocytes % 6 % Eosinophils % 3 % Basophils % 1 % Neutrophils # 2.5 (1.3-7.7) k/uL Lymphocytes # 1.4 (1.0-4.8) k/uL Monocytes # 0.3 (0-1.0) k/uL Eosinophils # 0.1 (0-0.7) k/uL Basophils # 0.0 (0-0.2) k/uL Hypochromasia Moderate Poikilocytosis Slight Anisocytosis Slight PT 10.2 (9.0-12.0) sec INR 0.9 (<1.2) APTT 24.4 (22.0-30.0) sec D-Dimer 2.31 H (<0.60) mg/L FEU Sodium 141 (137-145) mmol/L Potassium 4.4 (3.5-5.1) mmol/L Chloride 109 H (98-107) mmol/L Carbon Dioxide 20 L (22-30) mmol/L Anion Gap 12 mmol/L BUN 9 (7-17) mg/dL Creatinine 0.54 (0.52-1.04) mg/dL Est GFR (CKD-EPI)AfAm >90 (>60 ml/min/1.73 sqM) Est GFR (CKD-EPI)NonAf >90 (>60 ml/min/1.73 sqM) Glucose 86 (74-99) mg/dL Plasma Lactic Acid Maikol (0.7-2.0) mmol/L Calcium 9.4 (8.4-10.2) mg/dL Magnesium 1.9 (1.6-2.3) mg/dL Total Bilirubin 0.4 (0.2-1.3) mg/dL AST 25 (14-36) U/L ALT 44 H (4-34) U/L Alkaline Phosphatase 49 (38-126) U/L Troponin I (0.000-0.034) ng/mL NT-Pro-B Natriuret Pep pg/mL Total Protein 6.2 L (6.3-8.2) g/dL Albumin 3.8 (3.5-5.0) g/dL 11/12/20 11/12/20 11/12/20 Range/Units 11:01 11:01 11:01 WBC (3.8-10.6) k/uL RBC (3.80-5.40) m/uL Hgb (11.4-16.0) gm/dL Hct (34.0-46.0) % MCV (80.0-100.0) fL MCH (25.0-35.0) pg MCHC (31.0-37.0) g/dL RDW (11.5-15.5) % Plt Count (150-450) k/uL MPV Neutrophils % % Lymphocytes % % Monocytes % % Eosinophils % % Basophils % % Neutrophils # (1.3-7.7) k/uL Lymphocytes # (1.0-4.8) k/uL Monocytes # (0-1.0) k/uL Eosinophils # (0-0.7) k/uL Basophils # (0-0.2) k/uL Hypochromasia Poikilocytosis Anisocytosis PT (9.0-12.0) sec INR (<1.2) APTT (22.0-30.0) sec D-Dimer (<0.60) mg/L FEU Sodium (137-145) mmol/L Potassium (3.5-5.1) mmol/L Chloride (98-107) mmol/L Carbon Dioxide (22-30) mmol/L Anion Gap mmol/L BUN (7-17) mg/dL Creatinine (0.52-1.04) mg/dL Est GFR (CKD-EPI)AfAm (>60 ml/min/1.73 sqM) Est GFR (CKD-EPI)NonAf (>60 ml/min/1.73 sqM) Glucose (74-99) mg/dL Plasma Lactic Acid Maikol 1.6 (0.7-2.0) mmol/L Calcium (8.4-10.2) mg/dL Magnesium (1.6-2.3) mg/dL Total Bilirubin (0.2-1.3) mg/dL AST (14-36) U/L ALT (4-34) U/L Alkaline Phosphatase (38-126) U/L Troponin I <0.012 (0.000-0.034) ng/mL NT-Pro-B Natriuret Pep 142 pg/mL Total Protein (6.3-8.2) g/dL Albumin (3.5-5.0) g/dL Disposition Clinical Impression: Pleural effusion Disposition: HOME SELF-CARE Condition: Good Instructions (If sedation given, give patient instructions): Pleural Effusion (ED) Prescriptions: Ketorolac [Toradol] 10 mg PO Q6HR #15 tab Is patient prescribed a controlled substance at d/c from ED?: No Referrals: Jackson Ricci MD [Primary Care Provider] - 1-2 days Time of Disposition: 13:39
[2020-11-12 11:09] LABS: Anisocytosis Slight; Basophils % (A) 1 %; Eosinophils # (A) 0.1 k/uL (0-0.7); Eosinophils % (A) 3 %; HCT 33.2 % (34.0-46.0); HGB 10.9 gm/dL (11.4-16.0); Hypochromasia Moderate; Lymphocytes # (A) 1.4 k/uL (1.0-4.8); Lymphocytes % (A) 31 %; MCH 28.4 pg (25.0-35.0); MCHC 32.7 g/dL (31.0-37.0); MCV 86.8 fL (80.0-100.0); Mean Platelet Volume 8.1; Monocytes # (A) 0.3 k/uL (0-1.0); Monocytes % (A) 6 %; Neutrophils # (A) 2.5 k/uL (1.3-7.7); Neutrophils % (A) 57 %; Platelet Count 258 k/uL (150-450); Poikilocytosis Slight; RBC 3.83 m/uL (3.80-5.40); RDW 16.8 % (11.5-15.5); WBC 4.4 k/uL (3.8-10.6)
[2020-11-12 11:22] LABS: ALT 44 U/L (4-34); AST 25 U/L (14-36); African American GFR (CKD) >90 (>60 ml/min/1.73 sqM); Albumin 3.8 g/dL (3.5-5.0); Alkaline Phosphatase 49 U/L (38-126); Anion Gap 12 mmol/L; Blood Urea Nitrogen 9 mg/dL (7-17); Calcium 9.4 mg/dL (8.4-10.2); Carbon Dioxide 20 mmol/L (22-30); Chloride 109 mmol/L (98-107); Glucose 86 mg/dL (74-99); Magnesium 1.9 mg/dL (1.6-2.3); Non-African American GFR(CKD) >90 (>60 ml/min/1.73 sqM); Potassium 4.4 mmol/L (3.5-5.1); Sodium 141 mmol/L (137-145); Total Bilirubin 0.4 mg/dL (0.2-1.3); Total Protein 6.2 g/dL (6.3-8.2)
[2020-11-12 11:23] LABS: INR 0.9 (<1.2); Partial Thromboplastin Time 24.4 sec (22.0-30.0); Prothrombin Time 10.2 sec (9.0-12.0)
--- NOTE | 2020-11-12 11:34 | XR ---
EXAMINATION TYPE: XR chest 2V DATE OF EXAM: 11/12/2020 COMPARISON: Chest x-ray November 04, 2020. CTA chest November 02, 2020 HISTORY: Chest pain. TECHNIQUE: Frontal and lateral views of the chest are obtained. FINDINGS: There is slightly more prominent small left pleural effusion and associated left basilar a telectasis and/or infiltrate. Right lung is currently clear. The cardiac silhouette size remains wit hin normal limits. The osseous structures are intact. Overlying EKG leads are redemonstrated. IMPRESSION: Slightly more prominent small left pleural effusion with redemonstration of associated le ft basilar atelectasis and/or infiltrate.
--- NOTE | 2020-11-12 12:53 | CT ---
EXAMINATION TYPE: CT chest angio for PE DATE OF EXAM: 11/12/2020 COMPARISON: CTA chest November 02, 2020 HISTORY: elevated d-dimer. CT DLP: 283.3 mGycm Automated exposure control for dose reduction was used. CONTRAST: CTA Chest for pulmonary embolism performed with with IV Contrast, patient injected with 100 mL of Iso cora 370. MIP Images created and reviewed. FINDINGS: LUNGS: Stable small left pleural effusion and associated left basilar compressive atelectasis. Some r espiratory motion artifact degradation. Mild left basilar linear scarring and/or atelectasis. MEDIASTINUM: There is satisfactory enhancement of the central pulmonary arteries, there is no CT evid ence for pulmonary embolism. Some heterogeneity in the periphery without significant evidence for acu te pulmonary embolism. There are no greater than 1 cm hilar or mediastinal lymph nodes. No cardiome saba or pericardial effusion is seen. OTHER: Partial visualization of scarring in the upper abdominal anterior wall midline. Incidental sp lenule. Slight underlying scoliotic curvature redemonstrated. IMPRESSION: No acute pulmonary embolism. Stable small left pleural effusion. No new suspicious focal infiltrate. No significant change from prior.
[2020-11-12 13:06] VITALS: RESP 18
[2020-11-12 13:21] VITALS: BP 125/70; PULSE 70
== END 2020-11-12 13:52 | disposition home or self-care (01) ==
LOC: EC 10:04
DX: J90 Pleural effusion, not elsewhere classified (principal); F17.290 Nicotine dependence, other tobacco product, uncomplicated; Z79.1 Long term (current) use of non-steroidal anti-inflammatories (NSAID); Z79.899 Other long term (current) drug therapy
CPT/HCPCS: 36415; 93005; 85379; 83880; 80053; 83605; 83735; 84484; 85025; 85610; 85730; 87040; 71046; 71275; 99285; 96374; J1885; Q9967

== ENCOUNTER → 2021-04-29 | Outpatient (CLI) | payer BC ==
--- NOTE | 2021-04-29 16:21 | US ---
EXAMINATION TYPE: US pelvic complete DATE OF EXAM: 04/29/2021 COMPARISON: NONE CLINICAL HISTORY: 20-year-old female N93.9 Abdominal uterine and vaginal bleeding; unspecified. No pa in. Abnormal bleeding TECHNIQUE: Transabdominal sonographic images of the pelvis were acquired. Date of LMP: 04/14/2021, FINDINGS: EXAM MEASUREMENTS: Uterus: 8.4 x 4.4 x 3.8 cm Endometrial Stripe: 0.2 cm Right Ovary: 3.1 x 2.8 x 2.0 cm for a volume of 8.7 mL. Left Ovary: 3.2 x 2.2 x 2.0 cm for a volume of 7.1 mL. 1. Uterus: Anteverted. The myometrium is slightly heterogenous 2. Endometrium: wnl 3. Right Ovary: follicles seen 4. Left Ovary: follicles seen 5. Bilateral Adnexa: wnl 6. Posterior cul-de-sac: no free fluid IMPRESSION: Normal follicular change in the ovaries. Thin endometrial stripe at 2 mm.
== END | disposition home or self-care (01) ==
LOC: RADUSWWP 13:46
PROVIDERS: ATTEND Family Medicine
DX: N93.9 Abnormal uterine and vaginal bleeding, unspecified (principal)
CPT/HCPCS: 76856

== ENCOUNTER → 2021-05-12 | Outpatient (CLI) | payer BC ==
--- NOTE | 2021-05-12 13:23 | MR ---
EXAMINATION TYPE: MR pituitary wo/w con DATE OF EXAM: 05/12/2021 COMPARISON: CT brain 01/25/2019 HISTORY: Hyperprolactinemia TECHNIQUE: Multiplanar, multisequence images of the sella turcica is performed without and with IV contrast, uti lizing 7 mL intravenous Gadavist . FINDINGS: The pituitary shows some focal lower signal on postcontrast images, image 10 series 601 and image 9 of series 501, lesion measures partially 6 mm in AP dimension. There is some corresponding h yperintensity seen on T2-weighted sequences. Pituitary stalk is slightly deviated toward the left. Corpus callosum and cervical medullary junction are normal. Temporomandibular joints are intact. Ther e is inflammatory change in the sphenoid sinus on the right. IMPRESSION: Consistent with pituitary microadenoma.
== END | disposition home or self-care (01) ==
LOC: RADMRIMAIN 09:20
PROVIDERS: ATTEND Nurse Practitioner Family
DX: E22.1 Hyperprolactinemia (principal)
CPT/HCPCS: 70553; A9585

== ENCOUNTER → 2022-04-01 | Outpatient (CLI) | payer BC ==
--- NOTE | 2022-04-01 09:39 | XR ---
EXAMINATION TYPE: XR shoulder complete RT DATE OF EXAM: 04/01/2022 COMPARISON: NONE HISTORY: Pain TECHNIQUE: Three views are submitted. FINDINGS: The osseous structures are intact. There is no acute fracture or dislocation. The AC joint is maint ained. IMPRESSION: 1. No acute process.
--- NOTE | 2022-04-01 09:42 | XR ---
EXAMINATION TYPE: XR scoliosis survey DATE OF EXAM: 04/01/2022 COMPARISON: NONE HISTORY: SCOLIOSIS EVALUATION. TECHNIQUE: 4 views submitted FINDINGS: There is a curvature of the thoracolumbar spine measuring approximately 9 degrees. Vertebra l segments are intact. Occasional Schmorl's node noted. Pedicles intact. IMPRESSION: 1. Approximate 9 degrees scoliotic curvature of the thoracolumbar spine.
[2022-04-01 11:04] LABS: Basophils # (A) 0.02 X 10*3/uL (0.00-0.10); Basophils % (A) 0.3 %; Eosinophils # (A) 0.04 X 10*3/uL (0.04-0.35); Eosinophils % (A) 0.7 %; HCT 40.8 % (37.2-46.3); HGB 13.1 g/dL (12.0-15.0); Immature Grans, Automated 0.2 %; Lymphocytes # (A) 1.54 X 10*3/uL (0.90-5.00); Lymphocytes % (A) 26.5 %; MCH 27.1 pg (27.0-32.0); MCHC 32.1 g/dL (32.0-37.0); MCV 84.5 fL (80.0-97.0); Mean Platelet Volume 11.3 fL (9.5-12.2); Monocytes % (A) 6.9 %; NRBC Per 100 WBC 0 /100 WBCS (0.0-0.0); Neutrophils % (A) 65.4 %; Platelet Count 207 X 10*3/uL (140-440); RBC 4.83 X 10*6/uL (4.10-5.20); RDW 12.5 % (11.5-14.5); WBC 5.81 X 10*3/uL (4.50-10.00)
[2022-04-02 17:00] LABS: African American GFR (CKD) 127.9 (60.0-200.0); Albumin 4.3 g/dL (3.8-4.9); Albumin/Globulin Ratio 1.87 (1.60-3.17); BUN/Creat Ratio 15.77 Ratio (12.00-20.00); Carbon Dioxide 15.5 mmol/L (20.0-27.5); Globulin 2.3 g/dL (1.6-3.3); Non-African American GFR(CKD) 110.4 (60.0-200.0); Prolactin 14.1 ng/mL (2.800-29.200); T4, Free (Free Thyroxine) 1.2 ng/dL (0.800-1.800); Total Bilirubin 0.3 mg/dL (0.30-1.20); Total Protein 6.6 g/dL (6.2-8.2)
== END | disposition home or self-care (01) ==
LOC: LABWHC1 08:04
PROVIDERS: ATTEND Family Medicine
DX: M41.85 Other forms of scoliosis, thoracolumbar region (principal); M25.511 Pain in right shoulder; R53.83 Other fatigue
CPT/HCPCS: 36415; 72082; 80053; 82306; 82533; 84146; 84439; 84443; 84480; 84481; 85025

== ENCOUNTER → 2022-09-07 | Outpatient (CLI) | payer BC ==
--- NOTE | 2022-09-08 08:08 | CT ---
EXAMINATION TYPE: CT abdomen wo/w con CT DLP: 1598.80 mGycm, Automated exposure control for dose reduction was used. 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 LIVER MASS PROTOCOL TECHNIQUE: Axial CT of the abdomen. Sagittal and coronal reformats were created on a separate workst [facility]count [facility]. Contrast used:100 mL of Isovue 370 without and with IV Contrast, (none if empty) Oral contrast used: with Oral Contrast (none if empty) FINDINGS: LOWER CHEST: Unremarkable ABDOMEN LIVER: Suture along the left liver margin. There is arterial phase contrast extending all way towards the periphery series 8 image 17 measuring up to 14 mm which was seen on prior on 11/02/2020 is not si gnificant change. This lesion on delayed imaging is isointense to background parenchyma. GALLBLADDER AND BILE DUCTS: Unremarkable. PANCREAS: Unremarkable. SPLEEN: Unremarkable. ADRENAL GLANDS: Unremarkable. KIDNEYS AND URETERS: No evidence of hydronephrosis or renal calculus. The ureters are unremarkable. STOMACH AND BOWEL: No evidence of bowel obstruction. PERITONEUM/RETROPERITONEUM: No evidence of pneumoperitoneum or free fluid. VASCULATURE: No evidence of aortic aneurysm. MUSCULOSKELETAL: No acute osseous abnormalities LYMPH NODES: No gross evidence for lymphadenopathy. SOFT TISSUE/ABDOMINAL WALL: Post surgical changes anterior abdomen wall. Mild diastases of the rectus abdominis musculature. Fat-containing ventral hernias one of which contains loop of small bowel. No evidence for stimulation of bowel wall thickening. No evidence or obstruction. IMPRESSION: 1. Right hepatic lobe area of arterial phase enhancement which becomes isodense to the background li nelson on delayed imaging suggestive of vascular shunt phenomenon. No evidence for washout, no suspiciou s observations. 2. Post surgical changes to the liver in the anterior abdominal wall with fat containing and additio nal fat as well as loop of small bowel containing ventral hernias.
== END | disposition home or self-care (01) ==
LOC: RADCTMAIN 17:40
PROVIDERS: ATTEND Family Medicine
DX: D13.4 Benign neoplasm of liver (principal); K43.9 Ventral hernia without obstruction or gangrene
CPT/HCPCS: 74170; Q9967

== ENCOUNTER 2022-10-05 07:59 | Emergency (ER) | payer BC ==
[2022-10-05] MEDS ORDERED: SODIUM CHLORIDE 0.9% 1,000 ML IV STA (08:21)
[2022-10-05] MEDS ORDERED: KETOROLAC 15 MG/ML 1 ML VIAL IVP STA (08:21)
[2022-10-05] MEDS ORDERED: ONDANSETRON 4 MG/2 ML VIAL IVP STA (08:21)
--- NOTE | 2022-10-05 08:29 | ED ---
Abdominal Pain HPI - General Chief Complaint: Abdominal Pain Stated Complaint: abd pain Time Seen by Provider: 10/05/22 08:04 Source: patient, RN notes reviewed Mode of arrival: ambulatory Limitations: no limitations - History of Present Illness Initial Comments: This is a 21-year-old female who presents to the emergency department for lower abdominal pain. Patient states that when she was at work, she started to develop lower abdominal pain with radiation into the mid to upper back. She also started to feel very dizzy, sweaty, and nauseous. 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 States that the symptoms feel very similar and she wants to make sure that this is not what the issue is. She was told that the liver tumor was hormonal, however the patient has not been using any control or taking hormonal replacement/supplements. Denies any fevers, sore throat, cough, dyspnea, chest pain, palpitations, vomiting, diarrhea, or headaches. MD Complaint: abdominal pain - Related Data Home Medications Medication Instructions Recorded Confirmed Dextroamphetamine/Amphetamine 30 mg PO DAILY 10/05/22 10/05/22 [Adderall Xr 30 mg Capsule] Ergocalciferol [Vitamin D2 (1250 1,250 mcg PO Q7D 10/05/22 10/05/22 Mcg = [id number] Iu)] Previous Rx's Medication Instructions Recorded Ketorolac [Toradol] 10 mg PO Q6HR PRN #15 tab 10/05/22 Ondansetron Odt [Zofran Odt] 4 mg PO Q8HR PRN #15 tab 10/05/22 Allergies Allergy/AdvReac Type Severity Reaction Status Date / Time No Known Allergies Allergy Verified 10/05/22 10:43 Review of Systems ROS Statement: Those systems with pertinent positive or pertinent negative responses have been documented in the HPI. ROS Other: All systems not noted in ROS Statement are negative. Past Medical History Past Medical History: No Reported History Additional Past Medical History / Comment(s): Liver Mass, pituatry tumor liver tumor History of Any Multi-Drug Resistant Organisms: None Reported Past Surgical History: Section Additional Past Surgical History / Comment(s): Liver mass removed at [facility] hosp, exploratory laproscopy. liver mass removal Past Anesthesia/Blood Transfusion Reactions: No Reported Reaction Past Psychological History: ADD/ADHD, Anxiety Smoking Status: Vaper Past Alcohol Use History: None Reported Past Drug Use History: None Reported General Exam Limitations: no limitations General appearance: alert, anxious Head exam: Present: atraumatic, normocephalic, normal inspection Respiratory exam: Present: normal lung sounds bilaterally. Absent: respiratory distress, wheezes, rales, rhonchi, stridor Cardiovascular Exam: Present: regular rate, normal rhythm, normal heart sounds. Absent: systolic murmur, diastolic murmur, rubs, gallop, clicks GI/Abdominal exam: Present: soft, tenderness (Lower abdomen), normal bowel sounds. Absent: distended Neurological exam: Present: alert, oriented X3, CN II-XII intact Psychiatric exam: Present: normal affect, normal mood Skin exam: Present: warm, dry, intact, normal color. Absent: rash Course Vital Signs 10/05/22 10/05/22 08:00 13:18 Temperature 98.4 F 98.1 F Pulse Rate 71 64 Respiratory 20 16 Rate Blood Pressure 120/81 122/83 O2 Sat by Pulse 99 99 Oximetry Medical Decision Making - Medical Decision Making This is a 21-year-old female who presents to the emergency department for abdominal pain. Was pt. sent in by a medical professional or institution? @ -No Did you speak to anyone other than the patient for history? @ -No Did you review nursing and triage notes? @ -Yes, and I agree, it is accurate with regards to the patient's symptoms. Were old charts reviewed? @ -No Differential Diagnosis? @ -Differential Abdominal Pain Women: Appendicitis, Cholecystitis, diverticulosis, ischemic bowel, pancreatitis, hepatitis, UTI, gastroenteritis, AAA, incarcerated hernia, bowel obstruction, constipation, inflammatory bowel, hepatitis, peptic ulcer disease, splenic infarction, perforated viscus, vulvitis, ovarian torsion, PID, kidney stone, placenta abruption, this is not meant to be an all-inclusive list EKG interpreted by me (3pts min.)? @ -Not obtained X-rays interpreted by me (1pt min.)? @ -Not obtained CT interpreted by me (1pt min.)? @ -Computed tomography scan of the abdomen and pelvis obtained. My interpretation identifies no evidence of bowel wall thickening or free air. U/S interpreted by me (1pt. min.)? @ -Not interpreted by me What testing was considered but not performed? (CT, X-rays, U/S, labs)? Why? @ -None What meds were considered but not given? Why? @ -None Did you discuss the management of the patient with other professionals? @ -No Did you reconcile home meds? @ -No Was smoking cessation discussed for >3mins.? @ -No Was critical care preformed (if so, how long)? @ -No Were there social determinants of health that impacted care today? How? (Homelessness, low income, unemployed, alcoholism, drug addiction, transportation, low edu. Level, literacy, decrease access to med. care, fci, rehab)? @ -No Was there de-escalation of care discussed even if they declined? (Discuss DNR or withdrawal of care, Hospice)? @ -No What co-morbidities impacted this encounter? (DM, HTN, Smoking, COPD, CAD, Cancer, CVA, Hep., AIDS, mental health diagnosis, sleep apnea, morbid obesity)? @ -Hx of liver tumor Was patient admitted / discharged? @ -Discharged. Lab work obtained and found to be nonactionable. In light of her history of the liver tumor, computed tomography scan of the abdomen and pelvis was subsequently obtained. This revealed a stable hypervascular lesion in the right hepatic dome as well as nonobstructive right renal calculi and a small incisional hernia at the umbilicus. Given that she was still having some suprapubic pain, and because the computed tomography scan did not give any clear indication as to the cause of her symptoms, transvaginal ultrasound was subsequently obtained. This also revealed no acute findings to account for the patient's symptoms. Advised that at this point the cause of her symptoms is not entirely clear. She was given information for [facility] follow-up given the suprapubic nature of her pain. Rx for Toradol and Zofran provided with dosing instructions reviewed. Patient is instructed to take the Toradol with Tylenol if needed and avoid any other [id number] anti-inflammatories such as ibuprofen with the Toradol. Otherwise advised she also follow up with her PCP. Undiagnosed new problem with uncertain prognosis? @ -None Drug Therapy requiring intensive monitoring for toxicity (Heparin, Nitro, Insulin, Cardizem)? @ -None Were any procedures done? @ -None Diagnosis/symptom? @ -Abdominal pain, nausea Acute, or Chronic, or Acute on Chronic? @ -Acute Uncomplicated (without systemic symptoms) or Complicated (systemic symptoms)? @ -Uncomplicated Side effects of treatment? @ -None Exacerbation, Progression, or Severe Exacerbation] @ -Not applicable Poses a threat to life or bodily function? @ -No Return precautions reviewed in depth, the patient is instructed to return to the emergency department with any new, worsening, or concerning symptoms. Patient verbalized understanding. This case was discussed in detail with the attending ED physician, Dr. Ashraf. Presentation, findings, and treatment plan discussed in detail as well. - Lab Data Result diagrams: 10/05/22 08:31 10/05/22 08:31 Lab Results 10/05/22 10/05/22 10/05/22 Range/Units 08:31 08:31 08:31 WBC 8.2 (3.8-10.6) k/uL RBC 4.96 (3.80-5.40) m/uL Hgb 13.9 (11.4-16.0) gm/dL Hct 41.2 (34.0-46.0) % MCV 83.0 (80.0-100.0) fL MCH 28.0 (25.0-35.0) pg MCHC 33.7 (31.0-37.0) g/dL RDW 13.6 (11.5-15.5) % Plt Count 228 (150-450) k/uL MPV 9.2 Neutrophils % 54 % Lymphocytes % 37 % Monocytes % 6 % Eosinophils % 1 % Basophils % 0 % Neutrophils # 4.5 (1.3-7.7) k/uL Lymphocytes # 3.1 (1.0-4.8) k/uL Monocytes # 0.5 (0-1.0) k/uL Eosinophils # 0.0 (0-0.7) k/uL Basophils # 0.0 (0-0.2) k/uL Sodium (137-145) mmol/L Potassium (3.5-5.1) mmol/L Chloride (98-107) mmol/L Carbon Dioxide (22-30) mmol/L Anion Gap mmol/L BUN (7-17) mg/dL Creatinine (0.52-1.04) mg/dL Est GFR (CKD-EPI)AfAm (>60 ml/min/1.73 sqM) Est GFR (CKD-EPI)NonAf (>60 ml/min/1.73 sqM) Glucose (74-99) mg/dL Plasma Lactic Acid Maikol (0.7-2.0) mmol/L Calcium (8.4-10.2) mg/dL Total Bilirubin (0.2-1.3) mg/dL AST (14-36) U/L ALT (4-34) U/L Alkaline Phosphatase (38-126) U/L Total Protein (6.3-8.2) g/dL Albumin (3.5-5.0) g/dL Amylase (30-110) U/L Lipase (23-300) U/L HCG, Qual Urine Color Colorless Urine Appearance Clear (Clear) Urine pH 5.5 (5.0-8.0) Ur Specific [place] 1.010 (1.001-1.035) Urine Protein Negative (Negative) Urine Glucose (UA) Negative (Negative) Urine Ketones Negative (Negative) Urine Blood Negative (Negative) Urine Nitrite Negative (Negative) Urine Bilirubin Negative (Negative) Urine Urobilinogen <2.0 (<2.0) mg/dL Ur Leukocyte Esterase Negative (Negative) Urine HCG, Qual Not Detected (Not Detectd) 10/05/22 10/05/22 Range/Units 08:31 08:31 WBC (3.8-10.6) k/uL RBC (3.80-5.40) m/uL Hgb (11.4-16.0) gm/dL Hct (34.0-46.0) % MCV (80.0-100.0) fL MCH (25.0-35.0) pg MCHC (31.0-37.0) g/dL RDW (11.5-15.5) % Plt Count (150-450) k/uL MPV Neutrophils % % Lymphocytes % % Monocytes % % Eosinophils % % Basophils % % Neutrophils # (1.3-7.7) k/uL Lymphocytes # (1.0-4.8) k/uL Monocytes # (0-1.0) k/uL Eosinophils # (0-0.7) k/uL Basophils # (0-0.2) k/uL Sodium 140 (137-145) mmol/L Potassium 4.4 (3.5-5.1) mmol/L Chloride 108 H (98-107) mmol/L Carbon Dioxide 21 L (22-30) mmol/L Anion Gap 11 mmol/L BUN 10 (7-17) mg/dL Creatinine 0.66 (0.52-1.04) mg/dL Est GFR (CKD-EPI)AfAm >90 (>60 ml/min/1.73 sqM) Est GFR (CKD-EPI)NonAf >90 (>60 ml/min/1.73 sqM) Glucose 97 (74-99) mg/dL Plasma Lactic Acid Maikol 1.9 (0.7-2.0) mmol/L Calcium 8.9 (8.4-10.2) mg/dL Total Bilirubin 0.6 (0.2-1.3) mg/dL AST 33 (14-36) U/L ALT 19 (4-34) U/L Alkaline Phosphatase 30 L (38-126) U/L Total Protein 7.1 (6.3-8.2) g/dL Albumin 4.3 (3.5-5.0) g/dL Amylase 56 (30-110) U/L Lipase 90 (23-300) U/L HCG, Qual Not Detected Urine Color Urine Appearance (Clear) Urine pH (5.0-8.0) Ur Specific [place] (1.001-1.035) Urine Protein (Negative) Urine Glucose (UA) (Negative) Urine Ketones (Negative) Urine Blood (Negative) Urine Nitrite (Negative) Urine Bilirubin (Negative) Urine Urobilinogen (<2.0) mg/dL Ur Leukocyte Esterase (Negative) Urine HCG, Qual (Not Detectd) - Radiology Data Radiology results: report reviewed, image reviewed Disposition Clinical Impression: Suprapubic pain Disposition: HOME SELF-CARE Instructions (If sedation given, give patient instructions): Abdominal Pain (ED) Additional Instructions: Return to the emergency department with any new, worsening, or concerning symptoms. Alternate with Toradol and Tylenol as needed for pain relief. If you choose to take the Toradol, do not take any other anti-inflammatories such as ibuprofen. Take one or the other. Take the Zofran up to every 8 hours as need ed for nausea and vomiting. Make sure that you slowly advance your diet as tolerated and remain well-hydrated. Follow up with your primary care provider in 1-2 days. Contact [facility] as listed below for a follow up appointment and further evaluation of your ongoing symptoms. Prescriptions: Ketorolac [Toradol] 10 mg PO Q6HR PRN #15 tab PRN Reason: Pain Ondansetron Odt [Zofran Odt] 4 mg PO Q8HR PRN #15 tab PRN Reason: Nausea And Vomiting Is patient prescribed a controlled substance at d/c from ED?: No Referrals: Jackson Ricci MD [Primary Care Provider] - 1-2 days Holly Hernadez DO [Doctor of Osteopathic Medicine] - 1-2 days
[2022-10-05 08:49] LABS: Basophils % (A) 0 %; Eosinophils % (A) 1 %; HCT 41.2 % (34.0-46.0); HGB 13.9 gm/dL (11.4-16.0); Lymphocytes # (A) 3.1 k/uL (1.0-4.8); Lymphocytes % (A) 37 %; MCHC 33.7 g/dL (31.0-37.0); Mean Platelet Volume 9.2; Monocytes # (A) 0.5 k/uL (0-1.0); Monocytes % (A) 6 %; Neutrophils # (A) 4.5 k/uL (1.3-7.7); Neutrophils % (A) 54 %; Platelet Count 228 k/uL (150-450); RBC 4.96 m/uL (3.80-5.40); RDW 13.6 % (11.5-15.5); WBC 8.2 k/uL (3.8-10.6)
[2022-10-05 09:02] LABS: ALT 19 U/L (4-34); African American GFR (CKD) >90 (>60 ml/min/1.73 sqM); Amylase 56 U/L (30-110); Anion Gap 11 mmol/L; Blood Urea Nitrogen 10 mg/dL (7-17); Calcium 8.9 mg/dL (8.4-10.2); Carbon Dioxide 21 mmol/L (22-30); Chloride 108 mmol/L (98-107); Glucose 97 mg/dL (74-99); Lipase 90 U/L (23-300); Non-African American GFR(CKD) >90 (>60 ml/min/1.73 sqM); Sodium 140 mmol/L (137-145); Total Bilirubin 0.6 mg/dL (0.2-1.3)
[2022-10-05 09:03] LABS: AST 33 U/L (14-36); Albumin 4.3 g/dL (3.5-5.0); Alkaline Phosphatase 30 U/L (38-126); Potassium 4.4 mmol/L (3.5-5.1); Total Protein 7.1 g/dL (6.3-8.2)
[2022-10-05 09:25] LABS: HCG,Qualitative Serum Not Detected
--- NOTE | 2022-10-05 10:22 | CT ---
EXAMINATION TYPE: CT abdomen pelvis w con DATE OF EXAM: 10/05/2022 COMPARISON: 09/07/2022 HISTORY: 21-year-old female Abdominal pain, hx liver tumor TECHNIQUE: Contiguous axial scanning of the abdomen and pelvis following administration of 100 ml Iso cora 300 IV contrast. Delayed images through the kidneys and coronal/sagittal reconstructions perform ed. CT DLP: 1250 mGycm Automated exposure control for dose reduction was used. FINDINGS: Heart normal size without pericardial effusion. Lung bases clear without pleural effusion. 2.0 cm hypervascular lesion lateral right hepatic dome, unchanged from at least 11/02/2020 suggesting a benign etiology. Flash filling hemangioma, adenoma, and FNH are differential considerations. Stabil ity suggests a benign etiology. Portal venous system is patent. No biliary ductal dilatation. Some martinez rgical material along the left lateral liver margin redemonstrated. Gallbladder, adrenal glands, spleen with hilar splenule, left kidney, and pancreas show no gross abno rmality. A couple punctate 2 mm nonobstructive right renal calculus. No dilated small bowel, free fluid, or free air. Suspect a small incisional hernia at the umbilicus m easuring 2.9 cm wide. There is a herniated short segment of nonobstructed small bowel loop here. Normal appendix. Mild stool burden. No pericolonic inflammatory change. Bladder is urine distended. Uterus anteverted. Suspect a 1.4 cm intramural fundal fibroid. Follicular change in both ovaries. There may be trace cul-de-sac fluid likely physiologic. No pelvic lymphadeno [place] seen. Left-sided pelvic phleboliths. Bones: No osseous destructive process. IMPRESSION: 1. A COUPLE PUNCTATE 2 MM NONOBSTRUCTIVE RIGHT RENAL CALCULI. 2. REDEMONSTRATED SMALL INCISIONAL HERNIA AT THE UMBILICUS MEASURING 2.9 CM. SIMILAR HERNIATED SHORT SEGMENT OF NONOBSTRUCTED SMALL BOWEL HERE. 3. STABLE 2.0 CM HYPERVASCULAR LESION RIGHT HEPATIC DOME. SOME DIFFERENTIAL CONSIDERATIONS INCLUDE FLASH FILLING HEMANGIOMA, ADENOMA, AND FNH. STABILITY TO AT LEAST 11/02/2020 SUGGESTS A BENIGN ETIOLOGY. REDEMONSTRATED SURGICAL CHANGE ALONG THE LEFT LATERAL LIVER MA RGIN.
--- NOTE | 2022-10-05 11:40 | US ---
EXAMINATION TYPE: US transvaginal DATE OF EXAM: 10/05/2022 COMPARISON: Pelvic ultrasound 04/29/2021, CT abdomen pelvis 10/05/2022 CLINICAL INDICATION: Female, 21 years old with history of Pelvic pain; Irregular menses, pelvic cramp ing/pain. TECHNIQUE: Transvaginal (TV). Date of LMP: 08/18/22 EXAM MEASUREMENTS: Uterus: 7.7 x 3.8 x 4.8 cm Endometrial Stripe: 0.8 cm Right Ovary: 3.4 x 2.8 x 2.6 cm Left Ovary: 3.1 x 2.3 x 2.1 cm 1. Uterus: Anteverted Nabothian cysts. Heterogeneous myometrium 2. Endometrium: wnl 3. Right Ovary: multiple follicles 4. Left Ovary: multiple follicles Spectral, color and waveform doppler imaging shows good arterial and venous flow within the ovaries ; there is no evidence for ovarian torsion. 5. Bilateral Adnexa: wnl 6. Posterior cul-de-sac: wnl Heterogenous anteverted uterus. Unremarkable endometrium. Incidental nabothian cysts. Both ovaries ap pear unremarkable with multiple follicles identified. No free fluid. IMPRESSION: No sonographic evidence for an acute pelvic process.
[2022-10-05 12:20] LABS: Appearance,Urine Clear (Clear); Bilirubin,Urine Negative (Negative); Blood,Urine Negative (Negative); Color,Urine Colorless; Glucose,Urine (UA) Negative (Negative); Ketones,Urine Negative (Negative); Leukocyte Esterase,Urine Negative (Negative); Nitrite,Urine Negative (Negative); PH, Urine 5.5 (5.0-8.0); Protein,Urine Negative (Negative); Urobilinogen,Urine <2.0 mg/dL (<2.0)
[2022-10-05] MEDS ORDERED: ACET/COD 300 MG/30 MG STARTER PACK 6 TAB BTL PO STA (12:32)
[2022-10-05] MEDS ORDERED: IBUPROFEN 600 MG STARTER PACK 4 TAB BTL PO STA (12:32)
[2022-10-05] MEDS ORDERED: ONDANSETRON 4 MG ODT STARTER PACK 2 TAB BTL PO STA (12:32)
[2022-10-05 13:20] VITALS: BP 122/83; PULSE 64; RESP 16; TEMP 98.1
== END 2022-10-05 13:21 | disposition home or self-care (01) ==
LOC: EC 07:59
DX: N20.0 Calculus of kidney (principal); K43.2 Incisional hernia without obstruction or gangrene; K76.89 Other specified diseases of liver; F90.9 Attention-deficit hyperactivity disorder, unspecified type; F17.290 Nicotine dependence, other tobacco product, uncomplicated; Z79.899 Other long term (current) drug therapy
CPT/HCPCS: 36415; 80053; 82150; 83605; 83690; 85025; 81003; 81025; 84703; 93975; 76830; 74177; 99284; 96374; 96375; 96361; J2405; J1885; S0119; Q9967

== ENCOUNTER → 2023-04-17 | Outpatient (CLI) | payer BC ==
[2023-04-17 15:41] LABS: Basophils # (A) 0.04 X 10*3/uL (0.00-0.10); Basophils % (A) 0.4 %; Eosinophils # (A) 0.04 X 10*3/uL (0.04-0.35); Eosinophils % (A) 0.4 %; HCT 42.3 % (37.2-46.3); HGB 13.6 g/dL (12.0-15.0); Lymphocytes # (A) 3.53 X 10*3/uL (0.90-5.00); Lymphocytes % (A) 36.1 %; MCH 26.4 pg (27.0-32.0); MCHC 32.2 g/dL (32.0-37.0); Mean Platelet Volume 11.1 FL (9.5-12.2); Monocytes # (A) 0.59 X 10*3/uL (0.20-1.00); NRBC Per 100 WBC 0 X 10*3/uL (0.00-0.01); Neutrophils # (A) 5.56 X 10*3/uL (1.80-7.70); Neutrophils % (A) 56.8 %; Platelet Count 292 X 10*3/uL (140-440); RBC 5.16 X 10*6/uL (4.10-5.20); RDW 13.7 % (11.5-14.5); WBC 9.79 X 10*3/uL (4.50-10.00)
[2023-04-17 16:08] LABS: ALT 25 U/L (8-44); AST 24 U/L (13-35); Albumin 4.4 g/dL (3.8-4.9); Albumin/Globulin Ratio 1.76 Ratio (1.60-3.17); Alkaline Phosphatase 53 U/L (41-126); BUN/Creat Ratio 16.88 Ratio (12.00-20.00); Blood Urea Nitrogen 13.5 mg/dL (9.0-27.0); Calcium 9.8 mg/dL (8.7-10.3); Chloride 103 mmol/L (96-109); Chol/HDL Ratio 2.55 Ratio; Globulin 2.5 g/dL (1.6-3.3); Glucose 90 mg/dL (70-110); Potassium 4.3 mmol/L (3.5-5.5); Sodium 141 mmol/L (135-145); T4, Free (Free Thyroxine) 1.35 ng/dL (0.80-1.80); Total Bilirubin 0.5 mg/dL (0.3-1.2); Total Protein 6.9 g/dL (6.2-8.2)
[2023-04-17 16:50] LABS: Follicle Stimulating Hormone 5.6 mIU/mL; Luteinizing Hormone 15.4 mIU/mL
[2023-04-18 14:33] LABS: Growth Hormone, Human <0.1 ng/mL (<10)
[2023-04-18 19:50] LABS: Thyroid Peroxidase Antibodies <9.0 U/mL (0.0-33.0)
== END | disposition home or self-care (01) ==
LOC: LABWHC1 08:36
PROVIDERS: ATTEND Family Medicine
DX: R22.2 Localized swelling, mass and lump, trunk (principal)
CPT/HCPCS: 36415; 80053; 80061; 82024; 82306; 82670; 83001; 83002; 83003; 83036; 84146; 84305; 84439; 84443; 85025; 86376; 86800